=== PATIENT | male | born 1950 | race Caucasian/White ===

== ENCOUNTER 2017-08-03 10:48 | Emergency (ER) | payer MEDICARE, OTHER ==
[2017-08-03] MEDS ORDERED: BUPIVACAINE HCL 0.5 % INJ/PF 30 ML SDV INJ ONE (11:26)
--- NOTE | 2017-08-03 11:27 | RADIOLOGY REPORT (SQ) ---
EXAM DESCRIPTION: HAND LEFT 3 VIEWS COMPLETED DATE/TIME: 08/03/2017 11:19 am REASON FOR STUDY: deformity pinky finger COMPARISON: None. EXAM PARAMETERS: NUMBER OF VIEWS: Three views. TECHNIQUE: AP, lateral and oblique radiographic images acquired of the left hand. LIMITATIONS: None. FINDINGS: Normal bone density. Open dislocation left pinky finger PIP joint. There is radial and palmar dislocation of the middle p halanx with respect to the proximal phalanx. The base of the middle phalanx protrudes through a skin defect. No gross fracture. Remainder of the left hand demonstrates advanced osteoarthritis at the 1st carpometacarpal joint. IMPRESSION: Open dislocation left pinky finger at the PIP joint. TECHNICAL DOCUMENTATION: JOB ID: [id number] [employer]- All Rights Reserved
[2017-08-03] MEDS ORDERED: IBUPROFEN 800 MG TABLET ONE (11:33)
--- NOTE | 2017-08-03 11:45 | ER Document Report ---
ED General - General Chief Complaint: Hand Injury Stated Complaint: HAND PAIN Time Seen by Provider: 08/03/17 11:11 Mode of Arrival: Ambulatory Information source: Patient Notes: 66-year-old male presents with complaints of left hand fifth digit injury. Patient notes that he had gloves on was working with a drill bit when the drill caught onto his glove and started to twist it. Patient presents with open laceration dislocation of finger. Patient states he has sensation but is unable to move the digit TRAVEL OUTSIDE OF THE [place] IN LAST 30 DAYS: No - HPI Onset: Just prior to arrival Onset/Duration: Sudden Quality of pain: Sharp Severity: Moderate Pain Level: 3 Associated symptoms: Other Exacerbated by: Denies Relieved by: Denies Similar symptoms previously: No Recently seen / treated by doctor: No - Related Data Allergies/Adverse Reactions: No Known Allergies Allergy (Unverified 08/03/17 10:52) Home Medications: Current Home Medications Lisinopril [Lisinopril] 1 tab PO DAILY 08/03/17 [History] Simvastatin [Simvastatin] 1 tab PO DAILY 08/03/17 [History] Trazodone HCl 50 mg PO QHS PRN 08/03/17 [History] Past Medical History - Social History Smoking Status: Former Smoker Cigarette use (# per day): No Chew tobacco use (# tins/day): No Smoking Education Provided: No Frequency of alcohol use: Occasional Drug Abuse: Marijuana Family History: Reviewed & Not Pertinent Patient has suicidal ideation: No Patient has homicidal ideation: No Renal/ Medical History: Denies: Hx Peritoneal Dialysis - Immunizations Hx Diphtheria, Pertussis, Tetanus Vaccination: No Review of Systems - Review of Systems Notes: REVIEW OF SYSTEMS: CONSTITUTIONAL : Denies fever, chills, or sweats. Denies recent illness. EENT: Denies eye, ear, throat, or mouth pain or symptoms. Denies nasal or sinus congestion or discharge. Denies throat, tongue, or mouth swelling or difficulty swallowing. CARDIOVASCULAR: Denies chest pain. Denies palpitations or racing or irregular heart beat. Denies ankle edema. RESPIRATORY: Denies cough, cold, or chest congestion. Denies shortness of breath, difficulty breathing, or wheezing. GASTROINTESTINAL: Denies abdominal pain or distention. Denies nausea, vomiting , or diarrhea. Denies blood in vomitus, stools, or per rectum. Denies black, tarry stools. Denies constipation. GENITOURINARY: Denies difficulty urinating, painful urination, burning, frequency, blood in urine, or discharge. MUSCULOSKELETAL: Admits to left hand fifth digit pain SKIN: Denies rash, lesions or sores. HEMATOLOGIC : Denies easy bruising or bleeding. LYMPHATIC: Denies swollen, enlarged glands. NEUROLOGICAL: Denies confusion or altered mental status. Denies passing out or loss of consciousness. Denies dizziness or lightheadedness. Denies headache. Denies weakness or paralysis or loss of use of either side. Denies problems with gait or speech. Denies sensory loss, numbness, or tingling. Denies seizures. PSYCHIATRIC: Denies anxiety or stress. Denies depression, suicidal ideation, or homicidal ideation. ALL OTHER SYSTEMS REVIEWED AND NEGATIVE. Dictation was performed using [employer] recognition software PHYSICAL EXAMINATION: GENERAL: Well-appearing, well-nourished and in no acute distress. HEAD: Atraumatic, normocephalic. EYES: Pupils equal round and reactive to light, extraocular movements intact, sclera anicteric, conjunctiva are normal. ENT: Nares patent, oropharynx clear without exudates. Moist mucous membranes. NECK: Normal range of motion, supple without lymphadenopathy LUNGS: Breath sounds clear to auscultation bilaterally and equal. No wheezes rales or rhonchi. HEART: Regular rate and rhythm without murmurs ABDOMEN: Soft, nontender, nondistended abdomen. No guarding, no rebound. No masses appreciated. Musculoskeletal: Obvious open dislocation of the distal phalanx at the PIP joint the bone is exposed and protruding from the skin Patient has sensation at the distal aspect is unable to move the digit NEUROLOGICAL: Cranial nerves grossly intact. Normal speech, normal gait. Normal sensory, motor exams PSYCH: Normal mood, normal affect. SKIN: 1.2 cm laceration of the left hand on the palmar aspect of the PIP joint Physical Exam - Vital signs Vitals: Temp Pulse Resp BP Pulse Ox 97.9 F 51 L 16 129/57 H 96 08/03/17 10:59 08/03/17 10:59 08/03/17 10:59 08/03/17 10:59 08/03/17 10:59 Course - Re-evaluation Re-evalutation: 08/03/17 11:44 digital nerve block performed with complete relief, I reduced the patient's dislocation with no difficulty Flako mccallum , 08/03/17 12:02 Flako Alonzo orthopedic calls back and states that patient will require emergent transfer to hand specialist given that the bone and tendon are still exposed 08/03/17 12:15 Dr Toi mccallum at [facility] 08/03/17 12:35 Dr Cm accepts patient 08/03/17 15:[address] 4 sutures to approximate the skin, antibiotics tetanus were updated. Patient overall looks well and is awaiting transfer - Vital Signs Vital signs: Temp Pulse Resp BP Pulse Ox 97.9 F 51 L 16 129/57 H 96 08/03/17 10:59 08/03/17 10:59 08/03/17 10:59 08/03/17 10:59 08/03/17 10:59 - Diagnostic Test Radiology reviewed: Image reviewed, Reports reviewed Procedures - Joint Reduction/Fracture Care Left 5th digit Time completed: 13:00 Consent obtained: Yes Conscious sedation: No Pre-procedure NV exam: No Fracture: Open Manipulation comment: reduced with no complication Post-procedure NV exam: Yes Post-reduction x-ray: Joint reduced Reduction attempts: 1 Complications: No - Laceration/Wound Repair Left 5th digit Time completed: 12:29 Wound length (cm): 1.2 Wound's Depth, Shape: Into muscle, Irregular, Contused tissue Laceration pre-procedure: Sterile PPE donned, Betadine prep applied, Sterile drapes applied Anesthetic type: 0.5% Bupivacaine Volume Anesthetic (mLs): 10 Wound explored: No foreign body removed, Contaminated Irrigated w/ Saline (mLs): 6,000 Wound Debrided: Extensive Wound Repaired With: Sutures Suture Size/Type: 6:0 Number of Sutures: 4 Layer Closure?: No Post-procedure wound care: Sterile dressing applied, Splint applied Post-procedure NV exam normal: Yes Complications: No - Additional Procedures digital nerve block Time performed: 12:00 - Using 10 cc of Sensorcaine without epi digital nerve block was performed with no complication full pain control Discharge - Discharge Clinical Impression: Open fracture dislocation of proximal interphalangeal joint Condition: Fair Disposition: [facility], [facility]
[2017-08-03] MEDS ORDERED: LIDOCAINE 1% INJ-PF (10 MG/ML) 30 ML SDV INJ ONE (12:00)
[2017-08-03] MEDS ORDERED: DIPH/PERTUSS(ACELL)/TETANUS VAC/PF 0.5 ML SYR (>=10YO) IM ONE (12:04)
[2017-08-03] MEDS ORDERED: CEFAZOLIN 1 GM/D5W RTU 1 GM/50 ML RTUPB IV ONE (12:04)
--- NOTE | 2017-08-03 13:11 | RADIOLOGY REPORT (SQ) ---
EXAM DESCRIPTION: FINGER LEFT COMPLETED DATE/TIME: 08/03/2017 12:59 pm REASON FOR STUDY: post reduction COMPARISON: None. NUMBER OF VIEWS: Three views. TECHNIQUE: AP, lateral, and oblique images acquired of the left 5th finger LIMITATIONS: None. FINDINGS: MINERALIZATION: Normal. BONES: Question tiny avulsion fragment off the palmar are aspect, proximal phalanx near the PIP joint . This is marked with an arrow on the lateral view. No fracture of the middle phalanx. SOFT TISSUES: PIP joint soft tissue swelling. No foreign body. OTHER: No other significant finding. IMPRESSION: Post closed reduction of the pinky finger dislocation at the PIP joint. Normal alignmen t. Question tiny avulsion fragment off the palmar aspect proximal phalanx near the PIP joint, best shown on lateral view marked with an arrow COMMENT: SITE OF TRAUMA/COMPLAINT MARKED/STAMP COMPLETED: Yes TECHNICAL DOCUMENTATION: JOB ID: [id number] [employer]- All Rights Reserved
[2017-08-03 16:57] VITALS: BP 175/77
== END 2017-08-03 16:57 | disposition short-term general hospital (02) ==
LOC: ER 10:48
PROC: 0PSVXZZ Reposition Left Finger Phalanx, External Approach (ICD-10-PCS; principal; 2017-08-03)
PROC: 0HQGXZZ Repair Left Hand Skin, External Approach (ICD-10-PCS; 2017-08-03)
DX: S62.627B Displaced fracture of middle phalanx of left little finger, initial encounter for open fracture (principal); W31.1XXA Contact with metalworking machines, initial encounter; Z87.891 Personal history of nicotine dependence; Z23 Encounter for immunization
CPT/HCPCS: 99284; 90471; 96365; 73140; 73130; 90715; 26725; 12001; J0690; A9270; J3490

== ENCOUNTER 2018-07-28 14:09 | Observation (INO) | payer MEDICARE, OTHER ==
--- NOTE | 2018-07-28 14:22 | ER Document Report ---
ED Medical Screen (RME) - General Chief Complaint: S/S of Possible Stroke Stated Complaint: STROKE LIKE SYMPTOMS Time Seen by Provider: 07/28/18 14:19 Notes: 67-year-old male patient who suffered a basal ganglia hemorrhage 1 month ago with right-sided weakness. He noticed yesterday that his right lower extremity did not seem to have the strength and coordination that it normally was having. He did not pay much attention to it until this morning when he went to his physical therapy/stroke rehab. It was noted that he could not walk as well or use lower extremity as well as he could on his previous visits. He was sent to the emergency room for further evaluation. I have greeted and performed a rapid initial assessment of this patient. A comprehensive ED assessment and evaluation of the patient, analysis of test results and completion of the medical decision making process will be conducted by additional ED providers. TRAVEL OUTSIDE OF THE [place] IN LAST 30 DAYS: No - Related Data Allergies/Adverse Reactions: No Known Allergies Allergy (Verified 06/27/18 11:40) Past Medical History - Past Medical History Cardiac Medical History: Reports: Hx Hypercholesterolemia, Hx Hypertension Renal/ Medical History: Denies: Hx Peritoneal Dialysis Past Surgical History: Reports: Hx Orthopedic Surgery - right hip replacement - Immunizations Hx Diphtheria, Pertussis, Tetanus Vaccination: No Doctor's Discharge - Discharge Referrals: BROOK CARR [Primary Care Provider] - Follow up as needed
--- NOTE | 2018-07-28 14:56 | RADIOLOGY REPORT (SQ) ---
EXAM DESCRIPTION: CT HEAD WITHOUT COMPLETED DATE/TIME: 07/28/2018 2:37 pm REASON FOR STUDY: New right lower extremity weakness COMPARISON: 06/27/2018 CT brain TECHNIQUE: Axial images acquired through the brain without intravenous contrast. Images reviewed wi th bone, brain and subdural windows. Additional sagittal and coronal reconstructions were generated. Images stored on PACS. All CT scanners at this facility use dose modulation, iterative reconstruction, and/or weight based d osing when appropriate to reduce radiation dose to as low as reasonably achievable (ALARA). [facility]: Dose Right [facility]: CareDose [facility]: Dose Right [facility]: Teradose 4D [facility]: Smart Soluto RADIATION DOSE: CT Rad equipment meets quality standard of care and radiation dose reduction techniq ues were employed. CTDIvol: 53.2 mGy. DLP: 1017 mGy-cm. mGy. LIMITATIONS: None. FINDINGS: VENTRICLES: Normal size and contour. CEREBRUM: The small parenchymal hemorrhage along the left inferior basal ganglia/left medial temporal lobe seen on 06/27/2018 is no longer hyperdense. A hypodense subacute infarct is now evident on axi al image 15, 17 x 11 mm in size. No acute large territory ischemic change, acute intracranial hemorrh age, mass effect, or midline shift. There is mild to moderate spotty small vessel chronic ischemic change in the hemispheric white matter bifrontal and biparietal regions, stable compared to prior study. CEREBELLUM: No masses. No hemorrhage. No alteration of density. No evidence for acute infarction. EXTRAAXIAL SPACES: No fluid collections. No masses. ORBITS AND GLOBE: No intra- or extraconal masses. Normal contour of globe without masses. CALVARIUM: No fracture. PARANASAL SINUSES: No fluid or mucosal thickening. SOFT TISSUES: No mass or hematoma. OTHER: No other significant finding. IMPRESSION: Subacute infarct left basal ganglia/ medial temporal lobe in an area of acute hemorrhage identified 06/27/2018. No acute large territory ischemic change, acute intracranial hemorrhage mass effect or midline shift. EVIDENCE OF ACUTE STROKE: NO. COMMENT: Pertinent findings on the imaging study reported as a CRITICAL RESULT to KALYAN FUCHS MD at14:35 on 07/28/2018. Category of Critical Result: CT code stroke Quality ID # [id number]: Final reports with documentation of one or more dose reduction techniques (e.g., Au tomated exposure control, adjustment of the mA and/or kV according to patient size, use of iterative reconstruction technique) TECHNICAL DOCUMENTATION: JOB ID: [id number] [employer]- All Rights Reserved Reading location - IP/workstation name: [email or web address]
[2018-07-28 15:06] LABS: ABSOLUTE BASOPHILS # (AUTO) 0.1 10^3/uL (0.0-0.2); ABSOLUTE EOSINOPHILS # (AUTO) 0.3 10^3/uL (0.0-0.6); ABSOLUTE LYMPHOCYTES (AUTO) 2.1 10^3/uL (0.5-4.7); ABSOLUTE MONOCYTES (AUTO) 0.6 10^3/uL (0.1-1.4); ABSOLUTE NEUT (AUTO) 3.7 10^3/uL (1.7-8.2); BASOPHILS % (AUTO) 0.9 % (0-2); HEMOGLOBIN 14.9 g/dL (13.5-17.0); MEAN CORPUSCULAR HEMOGLOBIN 31.5 pg (27.0-33.4); MEAN CORPUSCULAR HGB CONC 34.7 g/dL (32.0-36.0); MEAN CORPUSCULAR VOLUME 91 fl (80-97); MONOCYTES % (AUTO) 9.6 % (3-13); PLATELET COUNT 161 10^3/uL (150-450); RED BLOOD COUNT 4.75 10^6/uL (4.35-5.55); RED CELL DISTRIBUTION WIDTH 13.2 % (11.5-14.0); SEGMENTED NEUTROPHILS % (AUTO) 54.5 % (42-78); TOTAL CELLS COUNTED % (AUTO) 100 %; WHITE BLOOD COUNT 6.8 10^3/uL (4.0-10.5)
--- NOTE | 2018-07-28 15:15 | ER Document Report ---
ED Neuro Symptoms/Deficit - General Chief Complaint: S/S of Possible Stroke Stated Complaint: STROKE LIKE SYMPTOMS Time Seen by Provider: 07/28/18 14:19 Mode of Arrival: Stretcher Information source: Patient TRAVEL OUTSIDE OF THE [place] IN LAST 30 DAYS: No - HPI Patient complains to provider of: Paresthesia, Weakness Onset: Yesterday Symptoms are: Worse/persistent Duration: More than 3 hrs Severity: Moderate Was STROKE ALERT Called: Yes Baseline Cognitive: Alert, oriented X 3 Baseline Gait: Uses a cane/walker Pre-existing weakness: Lower extremity, Upper extremity Patient Orientation: Person, Place, Time, Events New weakness: RUE, RLE Altered sensation: RLE Decreased ability to stand/walk: Weak Associated symptoms: None Similar symptoms previously: Yes Recently seen / treated by doctor: Yes Notes: Patient is a 67-year-old male presenting to the emergency room today complaining of worsening right-sided weakness over the past 2 days, he has a 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 exactly 1 month ago today, he was transferred to [facility] where he received care and was discharged, has currently been participating in physical therapy, he states he noticed his weakness starting sometime yesterday however at physical therapy today he was unable to move the right leg and complete the exercises that he has in the past therefore prompting physical therapist to send him to the emergency room for evaluation - Related Data Allergies/Adverse Reactions: No Known Allergies Allergy (Verified 06/27/18 11:40) Past Medical History - General Information source: Patient - Social History Smoking Status: Never Smoker Family History: Reviewed & Not Pertinent - Past Medical History Cardiac Medical History: Reports: Hx Hypercholesterolemia, Hx Hypertension Renal/ Medical History: Denies: Hx Peritoneal Dialysis Past Surgical History: Reports: Hx Orthopedic Surgery - right hip replacement - Immunizations Hx Diphtheria, Pertussis, Tetanus Vaccination: No Review of Systems - Review of Systems Constitutional: No symptoms reported EENT: No symptoms reported Cardiovascular: No symptoms reported Respiratory: No symptoms reported Gastrointestinal: No symptoms reported Genitourinary: No symptoms reported Male Genitourinary: No symptoms reported Musculoskeletal: No symptoms reported Skin: No symptoms reported Hematologic/Lymphatic: No symptoms reported Neurological/Psychological: See HPI -: Yes All other systems reviewed and negative Physical Exam - Vital signs Vitals: Temp Pulse Resp BP Pulse Ox 97.8 F 76 16 142/73 H 94 07/28/18 14:24 07/28/18 14:24 07/28/18 14:24 07/28/18 14:24 07/28/18 14:24 Interpretation: Normal - General General appearance: Appears well, Alert - HEENT Head: Normocephalic, Atraumatic Eyes: Normal Pupils: PERRL - Respiratory Respiratory status: No respiratory distress Chest status: Nontender Breath sounds: Normal Chest palpation: Normal - Cardiovascular Rhythm: Regular Heart sounds: Normal auscultation Murmur: No - Abdominal Inspection: Normal Distension: No distension Bowel sounds: Normal Tenderness: Nontender Organomegaly: No organomegaly - Back Back: Normal, Nontender - Extremities General upper extremity: Normal inspection, Nontender, Normal color, Normal ROM , Normal temperature General lower extremity: Normal inspection, Nontender, Normal color, Normal ROM , Normal temperature, Normal weight bearing. No: Yandel's sign - Neurological Neuro grossly intact: Yes Cognition: Normal Orientation: AAOx4 Sof[place] Coma Scale Eye Opening: Spontaneous [place] Coma Scale Verbal: Oriented Sofya Coma Scale Motor: Obeys Commands Sofya Coma Scale Total: 15 Speech: Normal Motor strength normal: LUE, LLE Additional motor exam normals: Pronator drift, Weakness Sensory: Altered light touch - Psychological Associated symptoms: Normal affect, Normal mood - Skin Skin Temperature: Warm Skin Moisture: Dry Skin Color: Normal Course - Re-evaluation Re-evalutation: 07/28/18 15:19 A call was placed to [facility], spoke with Pal in the transfer center and requested callback from neurology for consult and/or possible transfer of patient 07/28/18 16:[address] Swanson, neurology and [facility], recommends patient get an MRI with no contrast at this point in time and likely transfer back to [facility] depending on the results of this MRI 07/28/18 19:[address] Pal Wang who accepts for observation admission to the IMCU for worsening CVA symptoms - Vital Signs Vital signs: Temp Pulse Resp BP Pulse Ox 97.8 F 76 16 142/73 H 98 07/28/18 14:24 07/28/18 14:24 07/28/18 14:24 07/28/18 14:24 07/28/18 14:45 - Laboratory Result Diagrams: 07/28/18 14:54 07/28/18 14:54 - Diagnostic Test Radiology reviewed: Image reviewed, Reports reviewed ED NIH Stroke Scale - NIH Stroke Scale *: 1. NIH scale should be completed with appropriate accompanying assessment tools. *: 2. The NIH should reflect what the patient is capable of doing and should not be coached by the clinician. 1a. Level of Consciousness: 0=Alert;keenly responsive -: 1=Drowsy -: 2=Obtunded -: 3=Coma/unresponsive or reflex to noxious stimuli. 1a. Responses: 0 1b. Orientation Questions: a. What month is it? -: b. How old are you? -: 0=Answers both questions correctly. -: 1=Answers one question correctly or patient is intubated or has orotracheal trauma. -: 2=Answers neither question correctly. 1b. Responses: 0 1c. Response to commands: a. Open and close eyes? -: b. Circuit [employer] Assembler and release hand? -: Credit is given despite weakness. Demonstration of task is permitted. Substitute command if hands cannot be used. -: 0=Performs both tasks correctly -: 1=Performs one task correctly -: 2=Performs neither task correctly 1c. Responses: 0 2. Gaze: Establish eye contact and instruct patient to "Follow my finger" -: 0=Normal -: 1=Partial gaze palsy. Gaze is abnormal in one or both eyes, but where forced deviation or total gaze paresis is not present. -: 2=Forced deviation or total gaze paresis. 2. Responses: 0 3. Visual Gomez: Sees fingers in all four quadrants. -: 0=No visual loss. -: 1=Partial hemianopsia. -: 2=Complete hemianopsia. -: 3=Bilateral hemianopsia (including Cortical blindness) 3. Responses: 0 4. Facial Movement: Instruct patient to: -: a. Show me your teeth -: b. Raise your eyebrows -: c. Close your eyes -: d. Smile -: 0=Normal symmetrical movement -: 1=Minor paralysis (flattened nasolabial fold, asymmetry on smiling). -: 2=Partial paralysis (total or near total paralysis of lower face). -: 3=Complete paralysis of upper and lower face 4. Responses: 0 5. Motor functions (left arm): Alternate sides and extend each arm with palms down (90 degrees if sitting or 45 degrees for supine). -: 0=No drift;limb holds for full 10 seconds. -: 1=Drift; limb holds but drifts down before full 10 seconds, but does not hit bed. -: 2=Some effort against gravity; limb cannot get to or maintain position. -: 3=No effort against gravity; limb falls. -: 4=No movement. -: UN=Amputation, joint fusion, explain in comments. 5. Responses (left arm): 0 5. Motor Functions (right arm): Alternate sides and extend each arm with palms down (90 degrees if sitting or 45 degrees for supine). -: 0=No drift;limb holds for full 10 seconds. -: 1=Drift; limb holds but drifts down before full 10 seconds, but does not hit bed. -: 2=Some effort against gravity; limb cannot get to or maintain position. -: 3=No effort against gravity; limb falls. -: 4=No movement. -: UN=Amputation, joint fusion, explain in comments. 5. Responses (right arm): 2 6. Motor Functions (left leg): With patient lying supine, alternate sides and extend each leg (30 degrees always while supine). -: 0=No drift, leg holds position for full 5 seconds -: 1=Drift; leg falls before full 5 seconds but does not hit bed. -: 2=Some effort against gravity, leg falls to bed but some effort against gravity. -: 3=No effort against gravity, leg falls to bed immediately. -: 4=No movement. -: UN=Amputation, joint fusion; explain in comments. 6. Responses (left leg): 0 6. Motor Functions (right leg): With patient lying supine, alternate sides and extend each leg (30 degrees always while supine). -: 0=No drift, leg holds position for full 5 seconds -: 1=Drift; leg falls before full 5 seconds but does not hit bed. -: 2=Some effort against gravity, leg falls to bed but some effort against gravity. -: 3=No effort against gravity, leg falls to bed immediately. -: 4=No movement. -: UN=Amputation, joint fusion; explain in comments. 6. Responses (right leg): 3 7. Limb Ataxia: With eyes open instruct patient to: -: a. "Touch your finger to your nose". -: b. "Touch your heel to your steele" -: 0=Absent -: 1=Present in one limb. -: 2=Present in two limbs. -: UN=Amputation or joint fusion; explain in comments. 7. Responses: 0 8. Sensory: Test sensation using pinprick or noxious stimuli. Test as many body parts as possible. -: 0=Normal;no sensory loss -: 1=Mile to moderate sensory loss (patient feels pin prick but is less sharp on affected side). -: 2=Severe or total sensory loss. 8. Responses: 0 9. Best Language: Instruct patient to: -: a. "Describe what you see in this picture." -: b. "Name the items in this picture." -: c. "Read these sentences." -: 0=No aphasia, normal -: 1=Mild to moderate aphasia. -: 2=Severe aphasia -: 3=Mute, global aphasia, no usable speech or auditory comprehension. 9. Responses: 0 10. Articulation, Dysarthia: Instruct patient to: -: "Read these words" or "Repeat these words" -: 0=Normal -: 1=Mild to moderate; patient may slur some words but can be understood without difficulty. -: 2=Severe; patients speech so slurred as to be unintelligible in the absence of dysphasia. -: UN=Intubated or other physical barrier, explain in comments. 10. Responses: 0 11. Extinction or inattention: 0=No abnormality -: 1= Visual, tactile, auditory, spatial, or personal inattention or extinction to bilateral simulation in one or the sensory modalities. -: 2=Profound irene-inattention or irene-inattention to more than one modality; does not recognize own hand. 11. Responses: 0 Total Score: 5 Discharge - Discharge Clinical Impression: CVA (cerebral vascular accident) Qualifiers: CVA mechanism: unspecified Qualified Code(s): I63.9 - Cerebral infarction, unspecified Condition: Stable Disposition: ADMITTED OBSERVATION Admitting Provider: Hospitalist Unit Admitted: IMCU Referrals: BROOK CARR [NO LOCAL MD] - Follow up as needed
[2018-07-28 15:25] LABS: INTERNATIONAL RATION (INR) 0.94; PROTHROMBIN TIME 13.1 SEC (11.4-15.4)
[2018-07-28 15:27] LABS: PARTIAL THROMBOPLASTIN TIME 27.1 SEC (23.5-35.8)
[2018-07-28 15:28] LABS: ALANINE AMINOTRANSFERASE 34 U/L (21-72); ALBUMIN 4.6 g/dL (3.5-5.0); ALKALINE PHOSPHATASE 52 U/L (38-126); ANION GAP 13 (5-19); ASPARTATE AMINO TRANSFERASE 27 U/L (17-59); BILIRUBIN,DIRECT 0.3 mg/dL (0.0-0.4); BILIRUBIN,TOTAL 0.8 mg/dL (0.2-1.3); BLOOD UREA NITROGEN 17 mg/dL (7-20); CALCIUM 10.1 mg/dL (8.4-10.2); CARBON DIOXIDE 25 mmol/L (22-30); CHLORIDE 105 mmol/L (98-107); GLUCOSE 162 mg/dL (75-110); POTASSIUM 4.2 mmol/L (3.6-5.0); SODIUM 143.1 mmol/L (137-145)
[2018-07-28 15:29] LABS: TOTAL PROTEIN 7.3 g/dL (6.3-8.2)
--- NOTE | 2018-07-28 15:49 | RADIOLOGY REPORT (SQ) ---
EXAM DESCRIPTION: CHEST SINGLE VIEW COMPLETED DATE/TIME: 07/28/2018 3:38 pm REASON FOR STUDY: stroke COMPARISON: AP chest 06/27/2018 EXAM PARAMETERS: NUMBER OF VIEWS: One view. TECHNIQUE: Single frontal radiographic view of the chest acquired. RADIATION DOSE: NA LIMITATIONS: None. FINDINGS: LUNGS AND PLEURA: No opacities, masses or pneumothorax. No pleural effusion. MEDIASTINUM AND HILAR STRUCTURES: No masses. Contour normal. HEART AND VASCULAR STRUCTURES: Stable moderate cardiomegaly BONES: No acute findings. HARDWARE: None in the chest. OTHER: No other significant finding. IMPRESSION: No acute findings TECHNICAL DOCUMENTATION: JOB ID: [id number] [employer]- All Rights Reserved Reading location - IP/workstation name: [email or web address]
--- NOTE | 2018-07-28 18:28 | RADIOLOGY REPORT (SQ) ---
EXAM DESCRIPTION: MRI HEAD WITHOUT COMPLETED DATE/TIME: 07/28/2018 5:47 pm REASON FOR STUDY: right side weakness COMPARISON: CT dated 07/28/2018 and 06/27/2018. TECHNIQUE: Multiplanar imaging includes non-contrasted T1, T2, FLAIR, and diffusion with ADC map seq uences. Images stored on PACS. LIMITATIONS: None. FINDINGS: ANATOMY: No anomalies. Normal vascular flow voids. Pituitary fossa normal. CSF SPACES: Atrophy induced prominence of ventricles and CSF spaces. CEREBRUM: High signal intensity lesions scattered throughout the white matter on FLAIR imaging with d istribution suggesting micro-vascular ischemic changes. On gradient images there is a focal area of decreased signal and blooming at the site of previous hemorrhage in the left basal ganglia. No evide nce of acute hemorrhage, mass, or extraaxial fluid collection. POSTERIOR FOSSA: No signal alteration. No hemorrhage. No edema, masses or mass effect. Internal juan david tory canals, cerebello-pontine angles, mastoids normal. DIFFUSION IMAGING: Negative for acute or sub-acute infarction. ORBITS: No masses. Globes normal. PARANASAL SINUSES: No fluid levels. Mucosa normal. OTHER: No other significant finding. IMPRESSION: ATROPHY AND CHRONIC MICRO-VASCULAR ISCHEMIC CHANGES. FOCAL SIGNAL ABNORMALITY IN THE LE FT BASAL GANGLIA ON GRADIENT IMAGING SECONDARY TO PREVIOUS HEMORRHAGE AND RESIDUAL HEMOSIDERIN. NO A CUTE FINDINGS. EVIDENCE OF ACUTE STROKE: NO. TECHNICAL DOCUMENTATION: JOB ID: [id number] [employer]- All Rights Reserved Reading location - IP/workstation name: [email or web address]
[2018-07-28] MEDS ORDERED: MAGNESIUM HYDROXIDE SUSP 30 ML UDCUP PO PRN (19:30)
[2018-07-28] MEDS ORDERED: HYDRALAZINE HCL INJ/PF 20 MG/1 ML SDV IV PRN (19:30)
[2018-07-28] MEDS ORDERED: ACETAMINOPHEN 325 MG TABLET PO PRN ×2 (19:30)
[2018-07-28] MEDS ORDERED: DOCUSATE SODIUM 100 MG CAPSULE PO PRN (19:30)
--- NOTE | 2018-07-28 19:42 | EKG REPORT ---
SEVERITY:- BORDERLINE ECG - SINUS RHYTHM BORDERLINE INFERIOR Q WAVES : Confirmed by: Gabriel Chew MD 28-Jul-2018 19:42:03
[2018-07-28] MEDS ORDERED: TRAZODONE HCL 50 MG TABLET PO SCH (22:00)
[2018-07-28] MEDS: HEPARIN SOD (PORCINE) 5,000 UNIT/ML 1 ML SYRINGE SUBCUT SCH (22:18)
[2018-07-28] MEDS: GABAPENTIN 100 MG CAPSULE PO SCH (22:18)
[2018-07-28 22:50] LABS: CREATINE KINASE MB 0.35 ng/mL (<4.55)
[2018-07-28 22:53] LABS: TROPONIN I < 0.012 ng/mL
[2018-07-29 02:46] LABS: CREATINE KINASE MB 0.35 ng/mL (<4.55)
[2018-07-29 02:47] LABS: TROPONIN I < 0.012 ng/mL
--- NOTE | 2018-07-29 04:55 | PDOC H&P ---
History of Present Illness Admission Date/PCP: 07/28/18 19:47 Patient complains of: Right-sided dyskinesias and muscle cramping History of Present Illness: CÉSAR LOPEZ is a 67 year old male with a past medical history of hemorrhagic CVA 1 month ago presents with complaints of right-sided leg cramping and dysesthesias. He admits diarrhea and mild increase of blood pressure, attributing it to a new medication for depression started 6 days ago. Denies palpitations nausea vomiting or headache, in the emergency room MRI is found to have no new findings, he denies palpitations and EKG is in sinus rhythm. Dr. Swanson, neurologist at [facility] recommends observation with outpatient follow-up unless significant new development. He is referred to the hospitalist for observation. Past Medical History Cardiac Medical History: Reports: Hyperlipidema, Hypertension Past Surgical History Past Surgical History: Reports: Orthopedic Surgery - right hip replacement Social History Information Source: Patient Smoking Status: Never Smoker Frequency of Alcohol Use: Occasional Drugs: None - Advance Directive Resuscitation Status: Full Code Family History Family History: Hypertension Parental Family History Reviewed: Yes Children Family History Reviewed: Yes Sibling(s) Family History Reviewed.: Yes Medication/Allergy Home Medications: Lisinopril [Lisinopril] 20 mg PO DAILY 08/03/17 Simvastatin [Simvastatin] 40 mg PO DAILY 08/03/17 Allopurinol [Zyloprim 300 mg Tablet] 300 mg PO DAILY 07/28/18 Colchicine [Colcrys 0.6 mg Tablet] 1 tab PO DAILY 07/28/18 Escitalopram Oxalate [Lexapro 10 mg Tablet] 10 mg PO QHS 07/28/18 Gabapentin [Neurontin 100 mg Capsule] 300 mg PO TID 07/28/18 Hydrocortisone Acetate [Anucort-Hc] 25 mg RC BID 07/28/18 Isosorbide Dinitrate 30 mg PO BID 07/28/18 Allergies/Adverse Reactions: No Known Allergies Allergy (Verified 06/27/18 11:40) Review of Systems Constitutional: ABSENT: chills, fever(s), headache(s), weight gain, weight loss Eyes: ABSENT: visual disturbances Ears: ABSENT: hearing changes Cardiovascular: ABSENT: chest pain, dyspnea on exertion, edema, orthropnea, palpitations Respiratory: ABSENT: cough, hemoptysis Gastrointestinal: ABSENT: abdominal pain, constipation, diarrhea, hematemesis, hematochezia, nausea, vomiting Genitourinary: ABSENT: dysuria, hematuria Musculoskeletal: ABSENT: joint swelling Integumentary: ABSENT: rash, wounds Neurological: ABSENT: abnormal gait, abnormal speech, confusion, dizziness, focal weakness, syncope Psychiatric: ABSENT: anxiety, depression, homidical ideation, suicidal ideation Endocrine: ABSENT: cold intolerance, heat intolerance, polydipsia, polyuria Hematologic/Lymphatic: ABSENT: easy bleeding, easy bruising Physical Exam Vital Signs: Temp Pulse Resp BP Pulse Ox 97.9 F 54 L 20 126/60 H 94 07/29/18 03:59 07/29/18 04:00 07/29/18 04:00 07/29/18 04:00 07/29/18 04:00 Intake & Output 07/27/18 07/28/18 07/29/18 11:59 11:59 11:59 Output Total 325 Balance -325 General appearance: PRESENT: no acute distress, cooperative. ABSENT: disheveled Head exam: PRESENT: atraumatic, normocephalic Eye exam: PRESENT: conjunctiva pink, EOMI, PERRLA. ABSENT: scleral icterus Ear exam: PRESENT: normal external ear exam Mouth exam: PRESENT: moist, tongue midline Neck exam: ABSENT: carotid bruit, JVD, lymphadenopathy, thyromegaly Respiratory exam: PRESENT: clear to auscultation soha. ABSENT: rales, rhonchi, wheezes Cardiovascular exam: PRESENT: RRR. ABSENT: diastolic murmur, rubs, systolic murmur Pulses: PRESENT: normal dorsalis pedis pul Vascular exam: PRESENT: normal capillary refill GI/Abdominal exam: PRESENT: normal bowel sounds, soft. ABSENT: distended, guarding, mass, organolmegaly, rebound, tenderness Rectal exam: PRESENT: deferred Extremities exam: PRESENT: other - Weak dorsiflexion and plantarflexion of right foot. Severe dysesthesias of pins and needles Musculoskeletal exam: PRESENT: other - Weak dorsiflexion and plantarflexion of right foot. Severe dysesthesias of pins and needles Neurological exam: PRESENT: alert, awake, oriented to person, oriented to place , oriented to time, oriented to situation, CN II-XII grossly intact. ABSENT: motor sensory deficit Psychiatric exam: PRESENT: appropriate affect, normal mood. ABSENT: homicidal ideation, suicidal ideation Skin exam: PRESENT: dry, intact, warm. ABSENT: cyanosis, rash Results Laboratory Results: 07/28/18 07/28/18 07/29/18 20:39 20:39 02:00 Creatine Kinase 28 L 32 L CK-MB (CK-2) 0.35 Troponin I < 0.012 07/29/18 02:00 Creatine Kinase CK-MB (CK-2) 0.35 Troponin I < 0.012 Impressions: Head CT 07/28/18 14:22 IMPRESSION: Subacute infarct left basal ganglia/ medial temporal lobe in an area of acute hemorrhage identified 06/27/2018. No acute large territory ischemic change, acute intracranial hemorrhage mass effect or midline shift. EVIDENCE OF ACUTE STROKE: NO. Chest X-Ray 07/28/18 15:15 IMPRESSION: No acute findings Head MRI 07/28/18 16:16 IMPRESSION: ATROPHY AND CHRONIC MICRO-VASCULAR ISCHEMIC CHANGES. FOCAL SIGNAL ABNORMALITY IN THE LEFT BASAL GANGLIA ON GRADIENT IMAGING SECONDARY TO PREVIOUS HEMORRHAGE AND RESIDUAL HEMOSIDERIN. NO ACUTE FINDINGS. EVIDENCE OF ACUTE STROKE: NO. Assessment & Plan - Diagnosis (1) CVA (cerebral vascular accident) Qualifiers: CVA mechanism: unspecified Qualified Code(s): I63.9 - Cerebral infarction, unspecified Is this a current diagnosis for this admission?: Yes Plan: Hemorrhagic CVA 1 month ago, MRI shows no new changes, neurology suggest new symptoms may be related to vasospasm. Observation with outpatient follow-up to neurology at [facility] with Dr. Swanson. Continue outpatient regiment (2) Dysesthesia Is this a current diagnosis for this admission?: Yes Plan: Trial of Neurontin started, discontinuation of unknown antidepressant. (3) Right sided weakness Is this a current diagnosis for this admission?: Yes Plan: Residual to CVA 1 month ago, no new changes, outpatient physical therapy. - Time Time Spent: 30 to 50 Minutes
[2018-07-29] MEDS: HEPARIN SOD (PORCINE) 5,000 UNIT/ML 1 ML SYRINGE SUBCUT SCH ×2 (05:45→14:20)
[2018-07-29 08:34] LABS: ABSOLUTE BASOPHILS # (AUTO) 0.1 10^3/uL (0.0-0.2); ABSOLUTE EOSINOPHILS # (AUTO) 0.2 10^3/uL (0.0-0.6); ABSOLUTE LYMPHOCYTES (AUTO) 1.7 10^3/uL (0.5-4.7); ABSOLUTE MONOCYTES (AUTO) 0.6 10^3/uL (0.1-1.4); ABSOLUTE NEUT (AUTO) 3.4 10^3/uL (1.7-8.2); HEMOGLOBIN 14.6 g/dL (13.5-17.0); LYMPHOCYTES % (AUTO) 28.5 % (13-45); MEAN CORPUSCULAR HEMOGLOBIN 31.3 pg (27.0-33.4); MEAN CORPUSCULAR HGB CONC 34.6 g/dL (32.0-36.0); MEAN CORPUSCULAR VOLUME 91 fl (80-97); MONOCYTES % (AUTO) 10.3 % (3-13); PLATELET COUNT 149 10^3/uL (150-450); RED BLOOD COUNT 4.65 10^6/uL (4.35-5.55); RED CELL DISTRIBUTION WIDTH 13.3 % (11.5-14.0); SEGMENTED NEUTROPHILS % (AUTO) 56.2 % (42-78); TOTAL CELLS COUNTED % (AUTO) 100 %
[2018-07-29 08:57] LABS: ANION GAP 12 (5-19); BLOOD UREA NITROGEN 15 mg/dL (7-20); CALCIUM 10.1 mg/dL (8.4-10.2); CARBON DIOXIDE 26 mmol/L (22-30); CHLORIDE 106 mmol/L (98-107); CHOLESTEROL 171.16 mg/dL (0-200); GLUCOSE 112 mg/dL (75-110); POTASSIUM 4.3 mmol/L (3.6-5.0); SODIUM 143.5 mmol/L (137-145); TRIGLYCERIDES 261 mg/dL (<150)
[2018-07-29 09:07] LABS: CREATINE KINASE MB 0.31 ng/mL (<4.55)
[2018-07-29 09:08] LABS: DIRECT LDL 105 mg/dL (<100); TROPONIN I < 0.012 ng/mL
[2018-07-29 09:09] LABS: VLDL CHOLESTEROL 52.2 mg/dL (10-31)
--- NOTE | 2018-07-29 09:26 | Physician Advisory Note ---
Physician Advisor ProgressNote .: [facility], I have reviewed the medical record for this patient. Physician Advisor Statement: Please consider documenting, if you agree: 1. "Rt hemiparesis, due to prior CVA, worsened acutely due to likely " [cerebral ischemia/Reversible cerebrovascular vasoconstriction syndrome/ Acute cerebrovascular insufficiency/acute new CVA ... of Left Basal Ganglia?] 2. Medical necessity: Medicare pt, appropriately brought in as Obs, given good potential for safe d/c later today after 1MN. - If attending finds he is not safe for d/c later today after all, please document attg concerns/clinical reasons pt needs 2nd MN in hospital, & may then change to Inpt status. Thanks! CK
[2018-07-29] MEDS ORDERED: SIMVASTATIN 40 MG TABLET PO SCH (10:00)
[2018-07-29] MEDS ORDERED: LISINOPRIL 10 MG TABLET PO SCH (10:00)
[2018-07-29] MEDS ORDERED: (PENDING PHARMACY ID) (Lisinopril [Lisinopril] 1 TAB) PO SCH (10:00)
[2018-07-29] MEDS ORDERED: ASPIRIN 81 MG TABLET, ENT COATED PO SCH (10:00)
[2018-07-29] MEDS: GABAPENTIN 100 MG CAPSULE PO SCH (10:05)
[2018-07-29 14:47] VITALS: BP 125/58
--- NOTE | 2018-07-29 19:14 | PDOC DISCHARGE SUMMARY ---
General - Admit/Disc Date/PCP Admission Date/Primary Care Provider: 07/28/18 19:47 Discharge Date: 07/29/18 - Discharge Diagnosis (1) CVA (cerebral vascular accident) Is this a current diagnosis for this admission?: Yes Summary: 07/29/2018 67-year-old male history of hemorrhagic CVA 1 month ago admitted to with complaints of right sided leg cramping and dysesthesias. CT head was done during this hospital stay does not show any acute changes and able to walk around with the help of physical therapy. Patient is continue to use Neurontin as an outpatient. I have also done of the head which was negative for new findings.. (2) Dysesthesia Is this a current diagnosis for this admission?: Yes Summary: 07/29/2018 patient was started on Neurontin and he said is not helping much he is going to talk to the neurologist on Saturday for further management. (3) Right sided weakness Is this a current diagnosis for this admission?: Yes Summary: 07/29/2018 patient has right-sided weakness secondary to hemorrhagic CVA 1 month ago no new changes. - Additional Information Resuscitation Status: Full Code Discharge Diet: As Tolerated Discharge Activity: Slowly Increase Activity, Other Home Medications: Lisinopril 20 mg PO DAILY 08/03/17 Simvastatin 40 mg PO DAILY 08/03/17 Allopurinol [Zyloprim 300 mg Tablet] 300 mg PO DAILY 07/28/18 Colchicine [Colcrys 0.6 mg Tablet] 1 tab PO DAILY 07/28/18 Escitalopram Oxalate [Lexapro 10 mg Tablet] 10 mg PO QHS 07/28/18 Gabapentin [Neurontin 100 mg Capsule] 300 mg PO TID 07/28/18 Hydrocortisone Acetate [Anucort-Hc] 25 mg RC BID 07/28/18 Isosorbide Dinitrate 30 mg PO BID 07/28/18 History of Present Illness History of Present Illness: CÉSAR LOPEZ is a 67 year old male with history of hemorrhagic CVA 1 month ago came to the ER with complaints of right-sided leg cramping. Emergency room gives a history of diarrhea and mild increased blood pressure attributing to the new medication for depression started 6 days ago. Denies any palpitations, nausea, vomitings, headache in the emergency room. MRI of the brain shows no new findings. Dr May neurologist at [facility] recommended outpatient follow-up unless there is a significant development during the hospital stay. She was admitted for observation. Physical Exam Vital Signs: Temp Pulse Resp BP Pulse Ox 98.1 F 57 L 20 125/58 L 95 07/29/18 14:46 07/29/18 14:46 07/29/18 14:46 07/29/18 14:46 07/29/18 14:46 Intake & Output 07/28/18 07/29/18 07/30/18 06:59 06:59 06:59 Intake Total 946 Output Total 525 500 Balance -525 446 Weight 94 kg General appearance: PRESENT: no acute distress Head exam: PRESENT: atraumatic Eye exam: PRESENT: PERRLA Neck exam: ABSENT: carotid bruit, JVD, lymphadenopathy, thyromegaly Respiratory exam: PRESENT: clear to auscultation soha. ABSENT: rales, rhonchi, wheezes Cardiovascular exam: PRESENT: RRR. ABSENT: diastolic murmur, rubs, systolic murmur Pulses: PRESENT: normal dorsalis pedis pul Neurological exam: PRESENT: alert, awake, oriented to time, oriented to situation, other - Right-sided weakness. Psychiatric exam: PRESENT: appropriate affect, normal mood. ABSENT: homicidal ideation, suicidal ideation Results Laboratory Results: 07/29/18 08:00 07/29/18 08:00 07/29/18 07/29/18 08:00 08:00 WBC 6.0 RBC 4.65 Hgb 14.6 Hct 42.0 MCV 91 MCH 31.3 MCHC 34.6 RDW 13.3 Plt Count 149 L Seg Neutrophils % 56.2 Lymphocytes % 28.5 Monocytes % 10.3 Eosinophils % 4.0 Basophils % 1.0 Absolute Neutrophils 3.4 Absolute Lymphocytes 1.7 Absolute Monocytes 0.6 Absolute Eosinophils 0.2 Absolute Basophils 0.1 Sodium 143.5 Potassium 4.3 Chloride 106 Carbon Dioxide 26 Anion Gap 12 BUN 15 Creatinine 0.92 Est GFR ( Amer) > 60 Est GFR (Non-Af Amer) > 60 Glucose 112 H Calcium 10.1 Triglycerides 261 H Cholesterol 171.16 LDL Cholesterol Direct 105 H VLDL Cholesterol 52.2 H HDL Cholesterol 34 L 07/28/18 07/28/18 07/29/18 20:39 20:39 02:00 Creatine Kinase 28 L 32 L CK-MB (CK-2) 0.35 Troponin I < 0.012 07/29/18 07/29/18 07/29/18 02:00 08:00 08:00 Creatine Kinase 29 L CK-MB (CK-2) 0.35 0.31 Troponin I < 0.012 < 0.012 Impressions: Head CT 07/28/18 14:22 IMPRESSION: Subacute infarct left basal ganglia/ medial temporal lobe in an area of acute hemorrhage identified 06/27/2018. No acute large territory ischemic change, acute intracranial hemorrhage mass effect or midline shift. EVIDENCE OF ACUTE STROKE: NO. Chest X-Ray 07/28/18 15:15 IMPRESSION: No acute findings Head MRI 07/28/18 16:16 IMPRESSION: ATROPHY AND CHRONIC MICRO-VASCULAR ISCHEMIC CHANGES. FOCAL SIGNAL ABNORMALITY IN THE LEFT BASAL GANGLIA ON GRADIENT IMAGING SECONDARY TO PREVIOUS HEMORRHAGE AND RESIDUAL HEMOSIDERIN. NO ACUTE FINDINGS. EVIDENCE OF ACUTE STROKE: NO. Qualifiers - * PATIENT BEING DISCHARGED WITH ANY OF THE FOLLOWING DIAGNOSIS: No VTE patient discharged on overlapping Therapy?: Yes
== END 2018-07-29 15:35 | disposition home or self-care (01) ==
LOC: ER 14:09 → EH 19:47 → 3S 21:15
PROVIDERS: ADMIT Internal Medicine; ATTEND Internal Medicine
DX: I63.9 Cerebral infarction, unspecified (principal); R20.8 Other disturbances of skin sensation; I69.351 Hemiplegia and hemiparesis following cerebral infarction affecting right dominant side; F32.9 Major depressive disorder, single episode, unspecified; I10 Essential (primary) hypertension; E78.5 Hyperlipidemia, unspecified; R25.2 Cramp and spasm; Z79.899 Other long term (current) drug therapy; Z96.641 Presence of right artificial hip joint; Z82.49 Family history of ischemic heart disease and other diseases of the circulatory system
CPT/HCPCS: 93005; 99285; 36415 ×2; 82553 ×2; 82962; 82550 ×2; 83735; 84443; 85025 ×2; 85610; 85730; 80048; 80053; 84484 ×2; 83036; 80061; 70551; 71045; 70450; 93010; 97530; 97116; 97163; 97167; G0378 ×2; J1644 ×2; J3490 ×2; A9270 ×4; G8978; G8979; G8987; G8988

== ENCOUNTER 2019-01-07 21:17 | Observation (INO) | payer MEDICARE, OTHER ==
[2019-01-07] MEDS ORDERED: ONDANSETRON 4 MG TAB.RAPDIS PO ONE (22:58)
--- NOTE | 2019-01-07 23:01 | ER Document Report ---
ED Medical Screen (RME) - General Chief Complaint: Abdominal Pain Stated Complaint: ABDOMINAL PAIN Time Seen by Provider: 01/07/19 22:57 Primary Care Provider: RICKIE GRESHAM MD [Primary Care Provider] - Follow up as needed Mode of Arrival: Medic Information source: Patient Notes: 68-year-old male presented to the ED for complaint of right upper quadrant abdominal pain did start at 7 PM tonight. He states he salad and they get back ribs earlier and then the pain started after that. He states he did have some twinges early in the week but nothing as bad as it was tonight. He states he has had nausea but no vomiting. Patient does have a history of a stroke in June bleed on the right with right-sided weakness. He is also had a history of a hip replacement on the right arthritis degenerative disc disease high blood pressure and cholesterol. He does drink 3 times a week does not smoke. He does live with his . He is alert oriented respirations regular and unlabored speaking in full sentences. Labs and ultrasound have been ordered as well as Zofran. I have greeted and performed a rapid initial assessment of this patient. A comprehensive ED assessment and evaluation of the patient, analysis of test results and completion of medical decision making process will be conducted by an additional ED providers. TRAVEL OUTSIDE OF THE [place] IN LAST 30 DAYS: No - Related Data Allergies/Adverse Reactions: No Known Allergies Allergy (Verified 06/27/18 11:40) Past Medical History - Past Medical History Cardiac Medical History: Reports: Hx Hypercholesterolemia, Hx Hypertension Renal/ Medical History: Denies: Hx Peritoneal Dialysis Past Surgical History: Reports: Hx Orthopedic Surgery - right hip replacement - Immunizations Hx Diphtheria, Pertussis, Tetanus Vaccination: No Physical Exam - Vital signs Vitals: Temp Pulse Resp BP Pulse Ox 99.0 F 68 18 153/69 H 95 01/07/19 21:28 01/07/19 21:28 01/07/19 21:28 01/07/19 21:28 01/07/19 21:28 Course - Vital Signs Vital signs: Temp Pulse Resp BP Pulse Ox 99.0 F 68 18 153/69 H 95 01/07/19 21:28 01/07/19 21:28 01/07/19 21:28 01/07/19 21:28 01/07/19 21:28 Doctor's Discharge - Discharge Referrals: RICKIE GRESHAM MD [Primary Care Provider] - Follow up as needed
--- NOTE | 2019-01-08 00:08 | RADIOLOGY REPORT (SQ) ---
EXAM DESCRIPTION: US ABDOMEN DOPPLER LIMITED COMPLETED DATE/TME: 01/07/2019 22:57 CLINICAL HISTORY: 68 years, Male, right upper quad pain nausea COMPARISON: None. TECHNIQUE: Right upper quadrant ultrasound was obtained. LIMITATIONS: None. FINDINGS: Study limited by patient body habitus. The pancreas is largely obscured by overlying bowel gas artifact. Visualized portions of the abdominal aorta appear normal, specifically with the mid abdominal aorta measuring 1.6 cm in AP diameter. The liver is echogenic, measuring 16.4 cm in length. Antegrade flow is documented within the main portal vein. Gallbladder wall thickness measures 4 mm. However, the gallbladder is collapsed. Gallstones are noted. In addition, sonographic Best's sign was positive. No pericholecystic free fluid is identified. Common bile duct measures 2 mm. Right kidney measures 10.4 x 5.5 x 5.9 cm in size. No hydronephrosis. IMPRESSION: Cholelithiasis with positive sonographic Best's sign. It is uncertain whether the gallbladder wall is thickened or if the gallbladder wall is accentuated secondary to nondistention. Overall, cholecystitis is a possibility. Echogenic liver, suggestive of hepatic siderosis. copyright 2010 [employer]- All Rights Reserved
[2019-01-08] MEDS ORDERED: MORPHINE SULFATE 10 MG/ML INJ IV ONE (02:29)
[2019-01-08] MEDS ORDERED: NORMAL SALINE 1000 ML 1,000 ML IV ONE (02:29)
[2019-01-08 02:30] LABS: ABSOLUTE EOSINOPHILS # (AUTO) 0.1 10^3/uL (0.0-0.6); ABSOLUTE LYMPHOCYTES (AUTO) 1.5 10^3/uL (0.5-4.7); ABSOLUTE MONOCYTES (AUTO) 1.1 10^3/uL (0.1-1.4); ABSOLUTE NEUT (AUTO) 5.8 10^3/uL (1.7-8.2); BASOPHILS % (AUTO) 0.4 % (0-2); EOSINOPHILS % (AUTO) 1.7 % (0-6); HEMATOCRIT 40.5 % (37.9-51.0); HEMOGLOBIN 13.7 g/dL (13.5-17.0); LYMPHOCYTES % (AUTO) 17.4 % (13-45); MEAN CORPUSCULAR HEMOGLOBIN 30.9 pg (27.0-33.4); MEAN CORPUSCULAR HGB CONC 33.8 g/dL (32.0-36.0); MEAN CORPUSCULAR VOLUME 91 fl (80-97); MONOCYTES % (AUTO) 12.5 % (3-13); PLATELET COUNT 176 10^3/uL (150-450); RED BLOOD COUNT 4.44 10^6/uL (4.35-5.55); RED CELL DISTRIBUTION WIDTH 13.4 % (11.5-14.0); TOTAL CELLS COUNTED % (AUTO) 100 %; WHITE BLOOD COUNT 8.6 10^3/uL (4.0-10.5)
--- NOTE | 2019-01-08 02:36 | ER Document Report ---
ED GI/ - General Chief Complaint: Abdominal Pain Stated Complaint: ABDOMINAL PAIN Time Seen by Provider: 01/07/19 22:57 Primary Care Provider: RICKIE GRESHAM MD [Primary Care Provider] - Follow up as needed Mode of Arrival: Medic TRAVEL OUTSIDE OF THE [place] IN LAST 30 DAYS: No - HPI Notes: 01/08/19 02:32 Patient is a 68-year-old male with a history of high cholesterol and hypertension and stroke 6 months ago who presents to the emergency department for right upper quadrant pain. He states that the pain started around 7 PM after eating a salad and ribs. Patient describes the pain as a constant throbbing. Patient has had nausea but no vomiting. Denies fever. Denies diarrhea. Patient states his last bowel movement was yesterday which was normal. 01/08/19 08:04 - Related Data Allergies/Adverse Reactions: No Known Allergies Allergy (Verified 06/27/18 11:40) Past Medical History - General Information source: Patient - Social History Smoking Status: Never Smoker Frequency of alcohol use: Social Drug Abuse: None Lives with: Spouse/Significant other Family History: Hypertension Patient has suicidal ideation: No Patient has homicidal ideation: No - Past Medical History Cardiac Medical History: Reports: Hx Hypercholesterolemia, Hx Hypertension Pulmonary Medical History: Reports: None EENT Medical History: Reports: None Neurological Medical History: Reports: None Endocrine Medical History: Reports: None Renal/ Medical History: Reports: None. Denies: Hx Peritoneal Dialysis Malignancy Medical History: Reports None GI Medical History: Reports: None Musculoskeletal Medical History: Reports Hx Arthritis Skin Medical History: Reports None Psychiatric Medical History: Reports: None Traumatic Medical History: Reports: None Infectious Medical History: Reports: None Surgical Hx: Negative Past Surgical History: Reports: Hx Orthopedic Surgery - right hip replacement - Immunizations Hx Diphtheria, Pertussis, Tetanus Vaccination: No Hx Pneumococcal Vaccination: 06/02/18 Review of Systems - Review of Systems Constitutional: No symptoms reported EENT: No symptoms reported Cardiovascular: No symptoms reported Respiratory: No symptoms reported Gastrointestinal: See HPI Genitourinary: No symptoms reported Male Genitourinary: No symptoms reported Musculoskeletal: No symptoms reported Skin: No symptoms reported Hematologic/Lymphatic: No symptoms reported Neurological/Psychological: No symptoms reported Physical Exam - Vital signs Vitals: Temp Pulse Resp BP Pulse Ox 99.0 F 68 18 153/69 H 95 01/07/19 21:28 01/07/19 21:28 01/07/19 21:28 01/07/19 21:28 01/07/19 21:28 Interpretation: Hypertensive - Notes Notes: GENERAL: Well-appearing, well-nourished and in no acute distress. HEAD: Atraumatic, normocephalic. EYES: Pupils equal round and reactive to light, extraocular movements intact, sclera anicteric, conjunctiva are normal. ENT: TMs normal, nares patent, oropharynx clear without exudates. Moist mucous membranes. NECK: Normal range of motion, supple without lymphadenopathy or JVD. LUNGS: Breath sounds clear to auscultation bilaterally and equal. No wheezes rales or rhonchi. HEART: Regular rate and rhythm without murmurs, rubs or gallops. ABDOMEN: Round, firm, tender to right upper quadrant with + murphys sign, normoactive bowel sounds. No guarding. Midline diastasis recti that is soft and protrudes with movement and tension of abdominal muscles. EXTREMITIES: Normal range of motion, no pitting or edema. No clubbing or cyanosis. NEUROLOGICAL: Normal speech, right sided weakness (hx. stroke), uses cane to ambulate. PSYCH: Normal mood, normal affect. SKIN: Warm, Dry, normal turgor, no rashes or lesions noted. Course - Re-evaluation Re-evalutation: 01/08/19 02:36 On initial value and patient does report having about a 7 out of 10 right upper quadrant pain that is a constant throbbing. Patient states that his nausea has improved since receiving medication in triage. Will order IV fluids and pain medication. Ultrasound did show cholelithiasis with concern for acute cholecystitis. Will wait for lab work and consult with surgery. 01/08/19 03:22 Patient's lab work unremarkable. After dose of morphine patient reports that his pain is not better. Called Dr. Vinson the on-call surgicalist at this time does not believe the patient needs to be admitted. Will give another dose of pain medication and reevaluate. If patient continues to have severe pain will consult with surgicalist again. 0614: After receiving a dose of Dilaudid, patient continues to complain of a 4 out of 5 pain. Patient states that he feels uncomfortable going home as his pain is not controlled. Patient reports that he feels very bloated. Spoke with Dr. Vinson who will come and evaluate patient in the emergency department. 0802: Dr. Vinson at bedside and will admit patient. Orders have been placed into the computer. Patient updated on plan of care and will remain n.p.o. Patient is alert and oriented and in no acute distress. Is resting comfortably. Antibiotics have been initiated by surgical us. - Vital Signs Vital signs: Temp Pulse Resp BP Pulse Ox 98.3 F 65 18 121/70 94 01/08/19 04:59 01/08/19 04:59 01/08/19 04:59 01/08/19 04:59 01/08/19 04:59 - Laboratory Result Diagrams: 01/08/19 02:10 01/08/19 02:10 Laboratory results interpreted by me: 01/08/19 01/08/19 02:10 06:30 Glucose 127 H Ur Leukocyte Esterase TRACE H - Diagnostic Test Radiology reviewed: Image reviewed, Reports reviewed Discharge - Discharge Clinical Impression: Nausea Cholelithiasis Qualifiers: Cholelithiasis location: gallbladder Cholecystitis presence: with cholecystitis Cholecystitis acuity: acute Biliary obstruction: without biliary obstruction Qualified Code(s): K80.00 - Calculus of gallbladder with acute cholecystitis without obstruction Abdominal pain Qualifiers: Abdominal location: right upper quadrant Qualified Code(s): R10.11 - Right upper quadrant pain Condition: Stable Disposition: ADMITTED OBSERVATION Admitting Provider: Surgicalist Unit Admitted: Surgical Floor Referrals: RICKIE GRESHAM MD [Primary Care Provider] - Follow up as needed
[2019-01-08 02:53] LABS: ALANINE AMINOTRANSFERASE 36 U/L (21-72); ALBUMIN 4.4 g/dL (3.5-5.0); ALKALINE PHOSPHATASE 59 U/L (38-126); ANION GAP 10 (5-19); ASPARTATE AMINO TRANSFERASE 18 U/L (17-59); BILIRUBIN,DIRECT 0.2 mg/dL (0.0-0.4); BILIRUBIN,TOTAL 0.4 mg/dL (0.2-1.3); BLOOD UREA NITROGEN 17 mg/dL (7-20); CALCIUM 9.9 mg/dL (8.4-10.2); CARBON DIOXIDE 27 mmol/L (22-30); CHLORIDE 103 mmol/L (98-107); GLUCOSE 127 mg/dL (75-110); LIPASE 59.6 U/L (23-300); POTASSIUM 4.6 mmol/L (3.6-5.0); SODIUM 139.7 mmol/L (137-145)
[2019-01-08] MEDS ORDERED: HYDROMORPHONE HCL INJ/PF 2 MG/ML AMPULE IV ONE (03:21)
[2019-01-08 06:45] LABS: APPEARANCE,URINE CLEAR; BILIRUBIN,URINE NEGATIVE (NEGATIVE); COLOR,URINE YELLOW; GLUCOSE, URINE NEGATIVE (NEGATIVE); KETONES,URINE NEGATIVE (NEGATIVE); LEUKOCYTE ESTERASE,URINE TRACE (NEGATIVE); NITRITE,URINE NEGATIVE (NEGATIVE); PROTEIN,URINE NEGATIVE (NEGATIVE); URIC ACID CRYSTALS,URINE RARE /HPF; URINE SPECIFIC GRAVITY 1.011; UROBILINOGEN,URINE NEGATIVE mg/dL (<2.0)
[2019-01-08] MEDS ORDERED: MORPHINE SULFATE 10 MG/ML INJ IV PRN ×3 (07:48→16:14)
[2019-01-08] MEDS ORDERED: ONDANSETRON HCL INJ/PF 4 MG/2 ML SDV IV PRN ×2 (07:48→16:14)
[2019-01-08] MEDS ORDERED: DEXTROSE 5%-LACTATED RINGERS 1,000 ML IV PRN (07:48)
--- NOTE | 2019-01-08 07:59 | PDOC H&P ---
History of Present Illness Admission Date/PCP: RICKIE GRESHAM MD Patient complains of: Right upper quadrant pain and distention History of Present Illness: CÉSAR LOPEZ is a 68 year old male with a 1 day history of right upper quadrant pain that began after eating. It is sharp and stabbing. It is unrelenting. It is constant. Nothing makes it better. Palpation and movement make it worse. The pain does not radiate. He rates it as 9 out of 10. He denies any nausea, vomiting, fevers, chills, fatigue, malaise, orthostasis, dizziness, blurry vision, headache, chest pain, shortness of breath. 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 Endocrine Medical History: Reports: None Renal/ Medical History: Reports: None Malignancy Medical History: Reports: None GI Medical History: Reports: None Musculoskeltal Medical History: Reports: Arthritis Skin Medical History: Reports: None Psychiatric Medical History: Reports: None Traumatic Medical History: Reports: None Infectious Medical History: Reports: None Past Surgical History Past Surgical History: Reports: Orthopedic Surgery - right hip replacement Social History Lives with: Spouse/Significant other Smoking Status: Never Smoker Frequency of Alcohol Use: Occasional Drugs: None Family History Family History: Hypertension Parental Family History Reviewed: Yes Children Family History Reviewed: Yes Sibling(s) Family History Reviewed.: Yes Medication/Allergy Home Medications: Lisinopril 20 mg PO DAILY 08/03/17 Simvastatin 40 mg PO DAILY 08/03/17 Allopurinol [Zyloprim 300 mg Tablet] 300 mg PO DAILY 07/28/18 Colchicine [Colcrys 0.6 mg Tablet] 1 tab PO DAILY 07/28/18 Escitalopram Oxalate [Lexapro 10 mg Tablet] 10 mg PO QHS 07/28/18 Gabapentin [Neurontin 100 mg Capsule] 300 mg PO TID 07/28/18 Hydrocortisone Acetate [Anucort-Hc] 25 mg RC BID 07/28/18 Isosorbide Dinitrate 30 mg PO BID 07/28/18 Allergies/Adverse Reactions: No Known Allergies Allergy (Verified 06/27/18 11:40) Review of Systems Constitutional: ABSENT: anorexia, chills, fatigue, fever(s) Eyes: ABSENT: visual disturbances Ears: ABSENT: hearing changes Nose, Mouth, and Throat: ABSENT: sore throat Cardiovascular: ABSENT: chest pain Respiratory: ABSENT: cough Gastrointestinal: PRESENT: abdominal pain, bloating. ABSENT: melena, nausea, vomiting Genitourinary: ABSENT: dysuria Musculoskeletal: ABSENT: back pain Integumentary: ABSENT: pruritus, rash Neurological: ABSENT: confusion, convulsions, dizziness Psychiatric: ABSENT: anxiety, depression Endocrine: ABSENT: cold intolerance, heat intolerance Hematologic/Lymphatic: ABSENT: easy bleeding, easy bruising Physical Exam Vital Signs: Temp Pulse Resp BP Pulse Ox 98.3 F 65 18 121/70 94 01/08/19 04:59 01/08/19 04:59 01/08/19 04:59 01/08/19 04:59 01/08/19 04:59 Intake & Output 01/07/19 01/08/19 01/09/19 06:59 06:59 06:59 Intake Total 1000 Balance 1000 Weight 91.9 kg General appearance: PRESENT: mild distress, obese Head exam: PRESENT: atraumatic, normocephalic Eye exam: PRESENT: EOMI, PERRLA. ABSENT: scleral icterus Mouth exam: PRESENT: moist, neck supple Teeth exam: ABSENT: poor dentation Neck exam: ABSENT: meningismus, tenderness, thyromegaly, tracheal deviation Respiratory exam: PRESENT: clear to auscultation soha, unlabored. ABSENT: chest wall tenderness, tachypnea, wheezes Cardiovascular exam: PRESENT: RRR Pulses: PRESENT: normal radial pulses Vascular exam: PRESENT: normal capillary refill. ABSENT: pallor GI/Abdominal exam: PRESENT: distended, Best's sign, tenderness - Right upper quadrant. ABSENT: rebound Rectal exam: PRESENT: deferred Extremities exam: ABSENT: clubbing Musculoskeletal exam: ABSENT: deformity Neurological exam: PRESENT: alert, awake, oriented to person, oriented to place, oriented to time, oriented to situation Psychiatric exam: ABSENT: agitated, anxious, depressed Focused psych exam: ABSENT: delusional Skin exam: ABSENT: cyanosis, erythema, jaundice Results Laboratory Results: 01/08/19 02:10 01/08/19 02:10 01/08/19 01/08/19 01/08/19 02:10 02:10 06:30 WBC 8.6 RBC 4.44 Hgb 13.7 Hct 40.5 MCV 91 MCH 30.9 MCHC 33.8 RDW 13.4 Plt Count 176 Seg Neutrophils % 68.0 Lymphocytes % 17.4 Monocytes % 12.5 Eosinophils % 1.7 Basophils % 0.4 Absolute Neutrophils 5.8 Absolute Lymphocytes 1.5 Absolute Monocytes 1.1 Absolute Eosinophils 0.1 Absolute Basophils 0.0 Sodium 139.7 Potassium 4.6 Chloride 103 Carbon Dioxide 27 Anion Gap 10 BUN 17 Creatinine 0.96 Est GFR ( Amer) > 60 Est GFR (Non-Af Amer) > 60 Glucose 127 H Calcium 9.9 Total Bilirubin 0.4 AST 18 ALT 36 Alkaline Phosphatase 59 Total Protein 7.0 Albumin 4.4 Lipase 59.6 Urine Color YELLOW Urine Appearance CLEAR Urine pH 6.0 Ur Specific [place] 1.011 Urine Protein NEGATIVE Urine Glucose (UA) NEGATIVE Urine Ketones NEGATIVE Urine Blood NEGATIVE Urine Nitrite NEGATIVE Ur Leukocyte Esterase TRACE H Urine WBC (Auto) 5 Urine RBC (Auto) 1 Impressions: Abdomen Ultrasound 01/07/19 22:57 IMPRESSION: Cholelithiasis with positive sonographic Best's sign. It is uncertain whether the gallbladder wall is thickened or if the gallbladder wall is accentuated secondary to nondistention. Overall, cholecystitis is a possibility. Echogenic liver, suggestive of hepatic siderosis. copyright 2011 [employer]- All Rights Reserved Assessment & Plan - Diagnosis (1) Acute cholecystitis Is this a current diagnosis for this admission?: Yes - Plan Summary Plan Summary: This is a 68-year-old male with sharp, stabbing, unrelenting right upper quadrant pain. He has gallbladder wall thickening and gallstones present on ultrasound. He has a Best sign on exam. I believe the patient is experiencing acute cholecystitis. I will admit the patient to the hospital, start him on intravenous antibiotics, and plan for surgical intervention today. This has been discussed with the patient and his . They are in agreement with the treatment plan. Risks/benefits discussed, informed consent obtained, and all questions answered.
[2019-01-08] MEDS ORDERED: ROCURONIUM BROMIDE INJ 50 MG/5 ML VIAL IV ONE (09:50)
[2019-01-08] MEDS ORDERED: SUCCINYLCHOLINE CHLORIDE INJ 200 MG/10 ML VIAL ONE (09:50)
[2019-01-08] MEDS ORDERED: NEOSTIGMINE METHYLSULFATE 10 MG/10 ML VIAL ONE (09:50)
[2019-01-08] MEDS ORDERED: GLYCOPYRROLATE 1 MG/5 ML SYRINGE ONE (09:50)
[2019-01-08] MEDS ORDERED: LIDOCAINE 2% INJ-PF (20 MG/ML) 2 ML AMPUL ONE (09:50)
[2019-01-08] MEDS ORDERED: METOCLOPRAMIDE HCL INJ/PF 10 MG/2 ML SDV ONE (09:50)
[2019-01-08] MEDS ORDERED: KETOROLAC TROMETHAMINE 60 MG/2 ML SDV ONE (09:50)
[2019-01-08] MEDS: FAMOTIDINE INJ/PF 20 MG/2 ML SDV IV SCH ×2 (10:17→22:04)
[2019-01-08] MEDS: PIPERACILLIN SODIUM/TAZOBACTAM 3.375 GM in NORMAL SALINE 100 ML IV SCH ×3 (12:34→23:56)
[2019-01-08] MEDS ORDERED: FENTANYL CITRATE INJ/PF 100 MCG/2 ML AMPUL ONE (13:58)
[2019-01-08] MEDS ORDERED: MIDAZOLAM 2 MG/2 ML INJ ONE (13:58)
[2019-01-08] MEDS ORDERED: DEXAMETHASONE SOD PHOSPHATE INJ 4 MG/1 ML VIAL ONE (13:58)
[2019-01-08] MEDS ORDERED: PROPOFOL INJ 200 MG/20 ML VIAL IV ONE (13:58)
[2019-01-08] MEDS ORDERED: ONDANSETRON HCL INJ/PF 4 MG/2 ML SDV ONE (13:58)
[2019-01-08] MEDS ORDERED: ACETAMINOPHEN 1,000 MG/100 ML RTUPB IV ONE (13:59)
[2019-01-08] MEDS ORDERED: BUPIVACAINE HCL 0.5%-EPI 1:200000 INJ/PF 30 ML VIAL ONE (14:00)
[2019-01-08] MEDS ORDERED: DEXMEDETOMIDINE INJ 80 MCG/20 ML VIAL IV ONE (14:34)
[2019-01-08] MEDS ORDERED: MEPERIDINE HCL/PF INJ 25 MG/1 ML DISP.SYRIN IV PRN (16:11)
[2019-01-08] MEDS ORDERED: PROMETHAZINE HCL INJ 25 MG/1 ML VIAL IV PRN ×2 (16:11)
[2019-01-08] MEDS ORDERED: DIPHENHYDRAMINE HCL 50 MG/ML VIAL IV PRN (16:11)
[2019-01-08] MEDS ORDERED: FENTANYL CITRATE INJ/PF 100 MCG/2 ML AMPUL IV PRN ×3 (16:11)
[2019-01-08] MEDS ORDERED: OXYCODONE-ACETAMINOPHEN 5-325 MG TABLET PO PRN (16:14)
--- NOTE | 2019-01-08 17:44 | OPERATIVE REPORT E ---
Operative Report NAME: CÉSAR LOPEZ : 1950 AGE: 68Y DATE OF SURGERY: 01/08/2019 ROOM: 431 PREOPERATIVE DIAGNOSIS: CHOLELITHIASIS, ACUTE CHOLECYSTITIS. POSTOPERATIVE DIAGNOSIS: CHOLELITHIASIS, ACUTE CHOLECYSTITIS. OPERATION: LAPAROSCOPIC CHOLECYSTECTOMY. SURGEON: ALY ALMAGUER M.D. ANESTHESIA: General. INDICATION: This is a 68-year-old male who complained of severe right upper quadrant pains last night after a fatty meal. He went to the ED, where an ultrasound of the gallbladder showed gallstones with acute cholecystitis. The bile duct may be dilated, but all his enzymes are normal. PROCEDURE: After adequate general anesthesia, the patient was placed in supine position and the abdomen and prepped and draped in the usual sterile fashion. An infraumbilical incision was made. The fascia was identified and divided, and a Jelly trocar inserted through the fascia to the abdominal cavity and CO2 insufflated to a pressure of 15 mmHg. Next, the other trocars were placed, a 12 mm subxiphoid and two 5 mm right upper quadrant. The gallbladder was then identified and noted to be quite tense, and unable to be grasped. Because of this, it was then decompressed with a long needle. The tip of the gallbladder was subsequently grasped and pulled over the liver. The infundibulum also was identified and noted to be somewhat fatty and edematous. The cystic duct was then dissected as well as the cystic artery. Cystic duct not enlarged, and therefore cholangiogram was deferred. There were some stones, however, at the gallbladder close to the cystic duct. The cystic duct was subsequently clipped with Hemoclips and divided between the Hemoclips. Cystic artery also identified and clipped with Hemoclips and divided with use of Harmonic nikolay. The gallbladder was then taken off the liver bed with the use of Harmonic nikolay. There was some bleeding at the liver edge that was controlled with Harmonic. This area was then irrigated and there was still minimal oozing of the liver bed, and therefore Surgicel was placed at this area and a #15 Gary drain was then pulled over one of the right upper quadrant ports. The drain was placed in the area of the liver bed. The drain was then anchored to the skin with 2-0 silk. All the trocars were removed and CO2 allowed to come out of the trocar sites. The infraumbilical fascial defect was then closed with a [id number] suture using 0 Vicryl. Two stay sutures tied together to reinforce the closure. The skin incisions were then closed with running subcuticular 4-0 Vicryl undyed. Steri-Strips placed over the operative sites. Needle, instrument, and sponge count were all correct. Estimated blood loss was no more than 10 mL. DICTATING PHYSICIAN: ALY ALMAGUER M.D. [id number] PHY#: [id number] ID: [id number] JOB#: [id number] ACCT: [id number] cc:ALY ALMAGUER M.D. >
--- NOTE | 2019-01-08 18:11 | PDOC CONSULTATION ---
Consultation Consult Date: 01/08/19 Attending physician:: YEMI VINSON Consult reason:: Medical management History of Present Illness Admission Date/PCP: 01/08/19 08:23 RICKIE GRESHAM MD History of Present Illness: CÉSAR LOPEZ is a 68 year old male patient with past medical history of hy perlipidemia, hypertension, history of hemorrhagic CVA presented with chief complaint of right upper quadrant pain. Patient has been in his usual baseline state of health up until today when he started to have right upper quadrant pain which is nonradiating and it is 5/5 on pain scale. His ultrasound shows gallbladder stones and gallbladder wall thickening. Best sign is also positive. His signs symptoms are compatible with acute cholecystitis. Dr. Vinson admit this patient in consult to hospital service for medical management. Past Medical History Cardiac Medical History: Reports: Hyperlipidema, Hypertension Pulmonary Medical History: Reports: None EENT Medical History: Reports: None Neurological Medical History: Reports: None, Hemorrhagic CVA Endocrine Medical History: Reports: None Renal/ Medical History: Reports: None Malignancy Medical History: Reports: None GI Medical History: Reports: None Musculoskeltal Medical History: Reports: Arthritis Skin Medical History: Reports: None Psychiatric Medical History: Reports: None Traumatic Medical History: Reports: None Infectious Medical History: Reports: None Past Surgical History Past Surgical History: Reports: Orthopedic Surgery - right hip replacement Social History Lives with: Spouse/Significant other Smoking Status: Never Smoker Frequency of Alcohol Use: Occasional Drugs: None - Advance Directive Resuscitation Status: Full Code Family History Family History: Hypertension Parental Family History Reviewed: Yes Children Family History Reviewed: Yes Sibling(s) Family History Reviewed.: Yes Medication/Allergy Home Medications: Allopurinol [Zyloprim 300 mg Tablet] 300 mg PO DAILY 01/08/19 Colchicine [Colcrys 0.6 mg Tablet] 0.6 mg PO DAILY 01/08/19 Escitalopram Oxalate [Lexapro 10 mg Tablet] 10 mg PO DAILY 01/08/19 Isosorbide Dinitrate 30 mg PO BID 01/08/19 Lisinopril [Prinivil] 20 mg PO DAILY 01/08/19 Multivit-Min/Folic/Vit K/Lycop [Men's Multivitamin Tablet] 1 tab PO DAILY 01/08/19 Simvastatin [Zocor 40 mg Tablet] 40 mg PO QPM 01/08/19 Allergies/Adverse Reactions: No Known Allergies Allergy (Verified 06/27/18 11:40) Review of Systems Constitutional: ABSENT: chills, fever(s), headache(s), weight gain, weight loss Eyes: ABSENT: visual disturbances Ears: ABSENT: hearing changes Cardiovascular: ABSENT: chest pain, dyspnea on exertion, edema, orthropnea, palpitations Respiratory: ABSENT: cough, hemoptysis Gastrointestinal: PRESENT: abdominal pain - Right upper quadrant Genitourinary: ABSENT: dysuria, hematuria Musculoskeletal: ABSENT: joint swelling Integumentary: ABSENT: rash, wounds Neurological: ABSENT: abnormal gait, abnormal speech, confusion, dizziness, focal weakness, syncope Psychiatric: ABSENT: anxiety, depression, homidical ideation, suicidal ideation Endocrine: ABSENT: cold intolerance, heat intolerance, polydipsia, polyuria Hematologic/Lymphatic: ABSENT: easy bleeding, easy bruising Physical Exam Vital Signs: Temp Pulse Resp BP Pulse Ox 97.7 F 53 L 15 135/55 H 94 01/08/19 16:56 01/08/19 16:56 01/08/19 16:56 01/08/19 16:56 01/08/19 16:56 Intake & Output 01/07/19 01/08/19 01/09/19 06:59 06:59 06:59 Intake Total 1000 1250 Output Total 1165 Balance 1000 85 Weight 91.9 kg General appearance: PRESENT: no acute distress Head exam: PRESENT: atraumatic Neck exam: ABSENT: carotid bruit, JVD, lymphadenopathy, thyromegaly Respiratory exam: PRESENT: clear to auscultation soha. ABSENT: rales, rhonchi, wheezes Cardiovascular exam: PRESENT: RRR. ABSENT: diastolic murmur, rubs, systolic murmur Neurological exam: PRESENT: alert, awake Results Laboratory Results: 01/08/19 02:10 01/08/19 02:10 01/08/19 01/08/19 01/08/19 02:10 02:10 06:30 WBC 8.6 RBC 4.44 Hgb 13.7 Hct 40.5 MCV 91 MCH 30.9 MCHC 33.8 RDW 13.4 Plt Count 176 Seg Neutrophils % 68.0 Lymphocytes % 17.4 Monocytes % 12.5 Eosinophils % 1.7 Basophils % 0.4 Absolute Neutrophils 5.8 Absolute Lymphocytes 1.5 Absolute Monocytes 1.1 Absolute Eosinophils 0.1 Absolute Basophils 0.0 Sodium 139.7 Potassium 4.6 Chloride 103 Carbon Dioxide 27 Anion Gap 10 BUN 17 Creatinine 0.96 Est GFR ( Amer) > 60 Est GFR (Non-Af Amer) > 60 Glucose 127 H Calcium 9.9 Total Bilirubin 0.4 AST 18 ALT 36 Alkaline Phosphatase 59 Total Protein 7.0 Albumin 4.4 Lipase 59.6 Urine Color YELLOW Urine Appearance CLEAR Urine pH 6.0 Ur Specific [place] 1.011 Urine Protein NEGATIVE Urine Glucose (UA) NEGATIVE Urine Ketones NEGATIVE Urine Blood NEGATIVE Urine Nitrite NEGATIVE Ur Leukocyte Esterase TRACE H Urine WBC (Auto) 5 Urine RBC (Auto) 1 Impressions: Abdomen Ultrasound 01/07/19 22:57 IMPRESSION: Cholelithiasis with positive sonographic Best's sign. It is uncertain whether the gallbladder wall is thickened or if the gallbladder wall is accentuated secondary to nondistention. Overall, cholecystitis is a possibility. Echogenic liver, suggestive of hepatic siderosis. copyright 2011 [employer]- All Rights Reserved Assessment and Plan - Diagnosis (1) Abdominal pain due to acute cholecystiti Is this a current diagnosis for this admission?: Yes Plan: Patient is on antibiotic. Status post cholecystectomy. (2) Hypertension Qualifiers: Hypertension type: essential hypertension Qualified Code(s): I10 - Essential (primary) hypertension Is this a current diagnosis for this admission?: Yes Plan: I will revise and continue his home medication. (3) Hyperlipidemia Qualifiers: Hyperlipidemia type: unspecified Qualified Code(s): E78.5 - Hyperlipidemia, unspecified Is this a current diagnosis for this admission?: Yes Plan: I will continue his home statin. (4) History of hemorrhagic CVA Is this a current diagnosis for this admission?: Yes Plan: Stable
[2019-01-08] MEDS: KETOROLAC TROMETHAMINE INJ/PF 30 MG/1 ML SDV IV SCH ×2 (18:24→23:56)
[2019-01-08] MEDS: NORMAL SALINE 1000 ML 1,000 ML IV PRN ×2 (18:29→23:56)
[2019-01-08] MEDS ORDERED: TAMSULOSIN HCL 0.4 MG CAP.SR.24H PO SCH (22:00)
[2019-01-08] MEDS: METOPROLOL TARTRATE 50 MG TABLET PO SCH (22:15)
[2019-01-09] MEDS ORDERED: NORMAL SALINE 1000 ML 1,000 ML IV ONE (00:15)
[2019-01-09] MEDS ORDERED: NALOXONE HCL INJ/PF 0.4 MG/1 ML SDV IV ONE (00:15)
[2019-01-09] MEDS: KETOROLAC TROMETHAMINE INJ/PF 30 MG/1 ML SDV IV SCH (05:54)
[2019-01-09] MEDS: PIPERACILLIN SODIUM/TAZOBACTAM 3.375 GM in NORMAL SALINE 100 ML IV SCH (05:55)
[2019-01-09 07:35] LABS: ABSOLUTE LYMPHOCYTES (AUTO) 0.6 10^3/uL (0.5-4.7); ABSOLUTE MONOCYTES (AUTO) 0.5 10^3/uL (0.1-1.4); ABSOLUTE NEUT (AUTO) 6.4 10^3/uL (1.7-8.2); BASOPHILS % (AUTO) 0.1 % (0-2); HEMATOCRIT 35.8 % (37.9-51.0); HEMOGLOBIN 12.3 g/dL (13.5-17.0); LYMPHOCYTES % (AUTO) 7.9 % (13-45); MEAN CORPUSCULAR HEMOGLOBIN 31.2 pg (27.0-33.4); MEAN CORPUSCULAR HGB CONC 34.4 g/dL (32.0-36.0); MEAN CORPUSCULAR VOLUME 91 fl (80-97); MONOCYTES % (AUTO) 7.1 % (3-13); PLATELET COUNT 143 10^3/uL (150-450); RED BLOOD COUNT 3.94 10^6/uL (4.35-5.55); RED CELL DISTRIBUTION WIDTH 13.5 % (11.5-14.0); SEGMENTED NEUTROPHILS % (AUTO) 84.9 % (42-78); TOTAL CELLS COUNTED % (AUTO) 100 %; WHITE BLOOD COUNT 7.6 10^3/uL (4.0-10.5)
[2019-01-09 07:49] LABS: ALANINE AMINOTRANSFERASE 32 U/L (21-72); ALBUMIN 3.2 g/dL (3.5-5.0); ALKALINE PHOSPHATASE 43 U/L (38-126); ANION GAP 8 (5-19); ASPARTATE AMINO TRANSFERASE 19 U/L (17-59); BILIRUBIN,DIRECT 0.2 mg/dL (0.0-0.4); BILIRUBIN,TOTAL 0.7 mg/dL (0.2-1.3); BLOOD UREA NITROGEN 14 mg/dL (7-20); CARBON DIOXIDE 23 mmol/L (22-30); CHLORIDE 107 mmol/L (98-107); GLUCOSE 141 mg/dL (75-110); POTASSIUM 4.6 mmol/L (3.6-5.0); SODIUM 138.3 mmol/L (137-145); TOTAL PROTEIN 5.5 g/dL (6.3-8.2)
[2019-01-09] MEDS: FAMOTIDINE INJ/PF 20 MG/2 ML SDV IV SCH (09:38)
[2019-01-09] MEDS: METOPROLOL TARTRATE 50 MG TABLET PO SCH (09:41)
[2019-01-09] MEDS ORDERED: FOLIC PO SCH (10:00)
[2019-01-09] MEDS ORDERED: MULTIVIT MIN PO SCH (10:00)
[2019-01-09] MEDS ORDERED: LYCOP PO SCH (10:00)
[2019-01-09] MEDS ORDERED: (PENDING PHARMACY ID) (Lisinopril [Prinivil] 20 MG) PO SCH (10:00)
[2019-01-09] MEDS ORDERED: [UNRECOGNIZED DRUG - OTHER] PO SCH (10:00)
[2019-01-09] MEDS ORDERED: COLCHICINE 0.6 MG TABLET PO SCH (10:00)
[2019-01-09] MEDS ORDERED: ALLOPURINOL 300 MG TABLET PO SCH (10:00)
[2019-01-09] MEDS ORDERED: LISINOPRIL 10 MG TABLET PO SCH (10:00)
[2019-01-09] MEDS ORDERED: VIT K PO SCH (10:00)
[2019-01-09] MEDS ORDERED: (PENDING PHARMACY ID) (Isosorbide Dinitrate [Isosorbide Dinitrate] 30 MG) PO SCH (10:00)
[2019-01-09] MEDS ORDERED: ISOSORBIDE DINITRATE 10 MG TABLET PO SCH (10:00)
[2019-01-09] MEDS ORDERED: ESCITALOPRAM OXALATE 10 MG TABLET PO SCH (10:00)
[2019-01-09 13:25] VITALS: BP 134/54
--- NOTE | 2019-01-09 13:59 | DISCHARGE SUMMARY E ---
Discharge Summary NAME: CÉSAR LOPEZ : 1950 AGE: 68Y ADMITTED: 01/08/2019 DISCHARGED: 01/09/2019 FINAL DIAGNOSIS:Cholelitiasis Acute Cholecystitis PROCEDURE DONE: Laparoscopic cholecystectomy, 01/08/2019. SURGEON: Markell Almaguer M.D. HOSPITAL COURSE: This is a 68-year-old male with sudden complaints of pain in the right upper quadrant with nausea. He had an ultrasound, which showed gallstones. All his enzymes were normal. He was then taken to the OR for laparoscopic cholecystectomy. He was noted to have distended gallbladder with thickened wall, compatible with acute cholecystitis together with cholelithiasis. A Kaminski catheter was inserted in the OR and drained almost 1 L. Since patient unable to void the catheter was left in place and discontinued 6 a.m. on 01/09/2019. Patient started on Flomax. Patient able to void better. He was able to tolerate regular diet and feeling a lot better. The drain was removed on 01/09/2019 since it has not been draining that much. The patient was then discharged improved on 01/09/2019 with the above final diagnosis. Patient also given a prescription for Flomax 0.4 mg p.o. daily. Patient advised to see his primary physician next week and follow up in the surgical clinic in 2 weeks. DICTATING PHYSICIAN: MARKELL ALMAGUER M.D. [id number] PHY#: [id number] ID: [id number] JOB#: [id number] ACCT: [id number] cc:MARKELL ALMAGUER M.D. > MTDD
[2019-01-09] MEDS ORDERED: SIMVASTATIN 40 MG TABLET PO SCH (18:00)
== END 2019-01-09 13:56 | disposition home or self-care (01) ==
LOC: ER 21:17 → EH 01-08 08:23 → 4S 01-08 17:01
PROVIDERS: ADMIT Surgery; ATTEND Surgery
PROC: 0FT44ZZ Resection of Gallbladder, Percutaneous Endoscopic Approach (ICD-10-PCS; principal; 2019-01-08 14:30)
DX: K80.10 Calculus of gallbladder with chronic cholecystitis without obstruction (principal); I10 Essential (primary) hypertension; E78.5 Hyperlipidemia, unspecified; I69.151 Hemiplegia and hemiparesis following nontraumatic intracerebral hemorrhage affecting right dominant side; M19.90 Unspecified osteoarthritis, unspecified site; Z96.641 Presence of right artificial hip joint
CPT/HCPCS: 96376; 99285; 96361; 96374; 96375; 36415 ×2; 83690; 85025 ×2; 80053 ×2; 81001; 88304 ×2; 76705; 93976; 47562; G0378 ×3; A9270 ×6; J2250; J3490 ×6; J1100; J1885 ×3; J3010; J2765; J2270; J2310; J2710; J1170; J0330; J2405; J7121; J7050 ×2; J7030 ×2; J2704; S0028 ×2; J2543 ×2; J0131; 790; S0119

== ENCOUNTER → 2019-02-27 | Outpatient (CLI) | payer MEDICARE, OTHER | LOC: OD 12:06 | PROVIDERS: ATTEND Ophthalmology | DX: H47.392 Other disorders of optic disc, left eye (principal) | CPT/HCPCS: 36415; 85652; 86140 ==

== ENCOUNTER → 2019-04-09 | Outpatient (CLI) | payer MEDICARE, OTHER ==
[2019-04-09 11:38] LABS: ABSOLUTE LYMPHOCYTES (AUTO) 1.7 10^3/uL (0.5-4.7); ABSOLUTE MONOCYTES (AUTO) 1.1 10^3/uL (0.1-1.4); ABSOLUTE NEUT (AUTO) 8.2 10^3/uL (1.7-8.2); BASOPHILS % (AUTO) 0.3 % (0-2); EOSINOPHILS % (AUTO) 0.4 % (0-6); HEMATOCRIT 40.2 % (37.9-51.0); HEMOGLOBIN 13.6 g/dL (13.5-17.0); LYMPHOCYTES % (AUTO) 15.7 % (13-45); MEAN CORPUSCULAR HEMOGLOBIN 30.4 pg (27.0-33.4); MEAN CORPUSCULAR HGB CONC 33.9 g/dL (32.0-36.0); MEAN CORPUSCULAR VOLUME 90 fl (80-97); MONOCYTES % (AUTO) 10.2 % (3-13); PLATELET COUNT 178 10^3/uL (150-450); RED BLOOD COUNT 4.48 10^6/uL (4.35-5.55); RED CELL DISTRIBUTION WIDTH 12.7 % (11.5-14.0); SEGMENTED NEUTROPHILS % (AUTO) 73.4 % (42-78); TOTAL CELLS COUNTED % (AUTO) 100 %; WHITE BLOOD COUNT 11.1 10^3/uL (4.0-10.5)
== END ==
LOC: OD 11:05
PROVIDERS: ATTEND Anesthesiology Pain Medicine
DX: R50.9 Fever, unspecified (principal)
CPT/HCPCS: 36415; 85025

== ENCOUNTER → 2019-04-09 | Outpatient (CLI) | payer MEDICARE, OTHER ==
--- NOTE | 2019-04-09 14:27 | RADIOLOGY REPORT (SQ) ---
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 Additional thin section images through the orbits and sella including axial thin section fat-sat T2 i mages, axial and coronal pre and postcontrast T1 weighted images. Images stored on PACS. CONTRAST TYPE AND DOSE: 15 mL Dotarem. RENAL FUNCTION: Not indicated. ACR Type II contrast agent associated with few, if any, unconfounded cases of NSF LIMITATIONS: None. FINDINGS: PITUITARY FOSSA: No anomalies. Normal vascular flow voids. Pituitary fossa normal. Normal suprasellar cistern. Normal optic chiasm CSF SPACES: Normal in size and contour. No hemorrhage. CEREBRUM: No MR evidence of acute large territory ischemic change, acute intracranial hemorrhage, mas s effect, or midline shift. There is mild to moderate bifrontal and biparietal chronic small vessel ischemic change with increased signal on FLAIR/ T2 images in the hemispheric white matter. POSTERIOR FOSSA: No signal alteration. No hemorrhage. No edema, masses, or mass effect. Internal juan david tory canals, cerebellopontine angles, mastoids normal. No enhancing lesions. No abnormal enhancement post contrast. DIFFUSION IMAGING: Negative for acute or subacute infarction. ORBITS: No masses. Globes normal. No proptosis. Optic nerves are symmetric. No abnormal intrinsic optic nerve signal or dilatation of the optic nerve sheaths. No intraconal masses. Extraocular musc les are unremarkable. Normal lacrimal apparatus bilaterally. Superior ophthalmic veins enhance norm ally and are symmetric in size PARANASAL SINUSES: No fluid levels. Mucosa normal. OTHER: No other significant finding. IMPRESSION: No focal abnormalities along the right or left optic nerve, optic canals, optic chiasm o r suprasellar cistern. Grossly normal pituitary gland. Mild to moderate bifrontal and biparietal chronic small vessel ischemic change in the hemispheric whi te matter EVIDENCE OF ACUTE STROKE: NO. TECHNICAL DOCUMENTATION: JOB ID: [id number] [employer]- All Rights Reserved Reading location - IP/workstation name: [email or web address]
== END ==
LOC: RAD 11:52
PROVIDERS: ATTEND Ophthalmology
DX: H47.392 Other disorders of optic disc, left eye (principal)
CPT/HCPCS: 82565; 70553; A9576

== ENCOUNTER → 2019-04-10 | Outpatient (CLI) | payer MEDICARE, OTHER ==
[2019-04-10 08:39] LABS: ABSOLUTE EOSINOPHILS # (AUTO) 0.2 10^3/uL (0.0-0.6); ABSOLUTE LYMPHOCYTES (AUTO) 1.8 10^3/uL (0.5-4.7); ABSOLUTE MONOCYTES (AUTO) 0.8 10^3/uL (0.1-1.4); ABSOLUTE NEUT (AUTO) 5.3 10^3/uL (1.7-8.2); BASOPHILS % (AUTO) 0.5 % (0-2); EOSINOPHILS % (AUTO) 2.3 % (0-6); HEMATOCRIT 37.3 % (37.9-51.0); HEMOGLOBIN 12.9 g/dL (13.5-17.0); LYMPHOCYTES % (AUTO) 21.9 % (13-45); MEAN CORPUSCULAR HEMOGLOBIN 30.8 pg (27.0-33.4); MEAN CORPUSCULAR HGB CONC 34.5 g/dL (32.0-36.0); MEAN CORPUSCULAR VOLUME 89 fl (80-97); MONOCYTES % (AUTO) 10.3 % (3-13); PLATELET COUNT 178 10^3/uL (150-450); RED BLOOD COUNT 4.19 10^6/uL (4.35-5.55); RED CELL DISTRIBUTION WIDTH 12.6 % (11.5-14.0); TOTAL CELLS COUNTED % (AUTO) 100 %; WHITE BLOOD COUNT 8.1 10^3/uL (4.0-10.5)
== END ==
LOC: OD 08:12
PROVIDERS: ATTEND Physician Assistant
DX: R50.9 Fever, unspecified (principal)
CPT/HCPCS: 36415; 85025

== ENCOUNTER 2019-09-22 06:34 | Day surgery (SDC) | payer OTHER, MEDICARE ==
[~2019-09-22 06:34] MED LIST: BUPIVACAINE HCL 0.75% INJ/PF (7.5 MG/1 ML) 10 ML SDV OS PRN; DORZOLAMIDE HCL 2%/TIMOLOL MALEAT 0.5% OPH SOLN 10 ML OS PRN; KETOROLAC TROMETHAMINE 0.45% 4 DROP/0.4 ML DROPERETTE OS PRN; LIDOCAINE 4% INJ/PF (40 MG/ML) 5 ML AMPUL OS PRN
[2019-09-22] MEDS: TETRACAINE HCL 0.5% OPH SOLN 4 ML OS PRN ×3 (07:00→07:51)
[2019-09-22] MEDS: TROPICAMIDE 1% OPH SOLN 15 ML OS PRN ×3 (07:01→07:30)
[2019-09-22] MEDS: BESIFLOXACIN HCL 0.6% OPH SUSP 5 ML BOTTLE OS PRN ×3 (07:01→08:18)
[2019-09-22] MEDS: CYCLOPENTOLATE 0.2%/PHENYLEPHRINE 1% OPH SOLN 2 ML OS PRN ×3 (07:01→07:30)
[2019-09-22] MEDS ORDERED: EPINEPHRINE INJ/PF 1 MG/1 ML AMPULE ONE (07:17)
[2019-09-22] MEDS ORDERED: LIDOCAINE 1% INJ-PF (10 MG/ML) 30 ML SDV ONE (07:17)
[2019-09-22] MEDS ORDERED: CHONDR SU A NA/HYALUR INTRAOC KIT (SURGICARE) ONE (07:17)
[2019-09-22] MEDS ORDERED: MIDAZOLAM 2 MG/2 ML INJ ONE (07:30)
[2019-09-22] MEDS ORDERED: LIDOCAINE 1%/PHENYLEPHRINE 1.5% 1 ML VIAL ONE (08:32)
--- NOTE | 2019-09-22 09:03 | Operative Report ---
Operative Report-[facility] Operative Report: DATE OF SURGERY: 09/22/2019 PREOPERATIVE DIAGNOSIS: CATARACT, LEFT EYE. POSTOPERATIVE DIAGNOSIS: CATARACT, LEFT EYE. PROCEDURE PERFORMED: PHACOEMULSIFICATION WITH POSTERIOR CHAMBER INTRAOCULAR LENS, LEFT EYE. Intraocular Lens Model : ZCBOO 20.5 Total Phaco Time: 7.15 CDE SURGEON: AUGIE MUHAMMAD MD ANESTHESIA: TOPICAL WITH MAC. INDICATIONS FOR SURGERY: Difficultly driving at night PROCEDURE: The patient was brought to the Operating Room and placed on the operative table. Following tetracaine drops, topical anesthesia was administered. This consisted of instrument wipe pledgets soaked in a solution of 4% Xylocaine mixed with 0.75% Marcaine in a 1:2 ratio. A 2 x 1 cm pledget was placed in the superior fornix. A 1 x 1 cm pledget was placed in the inferior fornix. The eye was patched shut for 5 minutes. The patch was removed. The eye was sterilely prepped and draped in the usual manner. Lid speculum was placed in the eye. The pledgets were removed. 4-0 black silk sutures were placed around the superior and the inferior rectus muscles to be used as traction. A conjunctival peritomy was made at the 10 o'clock position. Hemostasis was obtained with bipolar cautery. A posterior limbal groove was created using a crescent knife and dissected anteriorly towards the cornea. A sharp point blade was used to create a paracentesis site at the 2 o'clock position. 0.2 cc non preserved Lidocaine was injected into the anterior chamber. A 2.4 mm keratome was used to enter the anterior chamber through the groove. Viscoelastic was injected into the anterior chamber. An anterior capsulotomy was performed using Utrata forceps in a capsulorrhexis fashion. Hydrodissection and hydrodelineation were performed. Phacoemulsification was performed in [id number] technique. Following this, the I/A unit was used to remove residual cortex. Viscoelastic was injected into the capsular bag. The Intraocular lens was placed in the capsular bag. The I/A unit was used to remove residual viscoelastic. The wound was seen to be watertight under high and low pressure, and no sutures were placed. The intraocular lens was well centered. The pressure was adjusted in the eye to normal pressure. The 4-0 black silk sutures and lid speculum were removed. The eye was shielded after Besivance and Cosopt drops were placed. The patient tolerated the procedure well and was sent to the Recovery Room in good condition.
== END 2019-09-22 09:04 | disposition home or self-care (01) ==
LOC: SC 06:34
PROVIDERS: ATTEND Ophthalmology
DX: H25.813 Combined forms of age-related cataract, bilateral (principal); I10 Essential (primary) hypertension; E78.00 Pure hypercholesterolemia, unspecified; Z87.891 Personal history of nicotine dependence; H47.013 Ischemic optic neuropathy, bilateral; H47.291 Other optic atrophy, right eye; H57.03 Miosis; Z79.899 Other long term (current) drug therapy; Z79.84 Long term (current) use of oral hypoglycemic drugs
CPT/HCPCS: 66984; 82962; V2632; J2250; J3490 ×5; J0171; J2370; 142

== ENCOUNTER 2019-10-13 07:11 | Day surgery (SDC) | payer MEDICARE, OTHER ==
[~2019-10-13 07:11] MED LIST changes: +BUPIVACAINE HCL 0.75% INJ/PF (7.5 MG/1 ML) 10 ML SDV OD PRN; -BUPIVACAINE HCL 0.75% INJ/PF (7.5 MG/1 ML) 10 ML SDV OS PRN; -DORZOLAMIDE HCL 2%/TIMOLOL MALEAT 0.5% OPH SOLN 10 ML OS PRN; +KETOROLAC TROMETHAMINE 0.45% 4 DROP/0.4 ML DROPERETTE OD PRN; -KETOROLAC TROMETHAMINE 0.45% 4 DROP/0.4 ML DROPERETTE OS PRN; +LIDOCAINE 4% INJ/PF (40 MG/ML) 5 ML AMPUL OD PRN; -LIDOCAINE 4% INJ/PF (40 MG/ML) 5 ML AMPUL OS PRN
[2019-10-13] MEDS: CYCLOPENTOLATE 0.2%/PHENYLEPHRINE 1% OPH SOLN 2 ML OD PRN ×3 (07:50→08:10)
[2019-10-13] MEDS: TROPICAMIDE 1% OPH SOLN 15 ML OD PRN ×3 (07:50→08:10)
[2019-10-13] MEDS: TETRACAINE HCL 0.5% OPH SOLN 4 ML OD PRN ×3 (07:50→08:22)
[2019-10-13] MEDS ORDERED: LIDOCAINE 1%/PHENYLEPHRINE 1.5% 1 ML VIAL ONE (07:50)
[2019-10-13] MEDS ORDERED: EPINEPHRINE INJ/PF 1 MG/1 ML AMPULE ONE (07:50)
[2019-10-13] MEDS: BESIFLOXACIN HCL 0.6% OPH SUSP 5 ML BOTTLE OD PRN ×5 (07:50→08:53)
[2019-10-13] MEDS ORDERED: CHONDR SU A NA/HYALUR INTRAOC KIT (SURGICARE) ONE (07:51)
[2019-10-13] MEDS ORDERED: MIDAZOLAM 2 MG/2 ML INJ ONE (08:24)
[2019-10-13] MEDS ORDERED: FENTANYL CITRATE INJ/PF 100 MCG/2 ML AMPUL ONE (08:24)
[2019-10-13] MEDS: DORZOLAMIDE HCL 2%/TIMOLOL MALEAT 0.5% OPH SOLN 10 ML OD PRN ×3 (08:50→08:53)
--- NOTE | 2019-10-13 11:38 | Operative Report ---
Operative Report-[facility] Operative Report: DATE OF SURGERY: 10/13/2019 PREOPERATIVE DIAGNOSIS: CATARACT, RIGHT EYE. POSTOPERATIVE DIAGNOSIS: CATARACT, RIGHT EYE. PROCEDURE PERFORMED: PHACOEMULSIFICATION WITH POSTERIOR CHAMBER INTRAOCULAR LENS, RIGHT EYE. Intraocular Lens Model : ZCBOO 20.5 Total Phaco Time: 3.93 CDE SURGEON: AUGIE MUHAMMAD MD ANESTHESIA: TOPICAL WITH MAC. INDICATIONS FOR SURGERY: Difficulty reading small print and words on TV. PROCEDURE: The patient was brought to the Operating Room and placed on the operative table. Following tetracaine drops, topical anesthesia was administered. This consisted of instrument wipe pledgets soaked in a solution of 4% Xylocaine mixed with 0.75% Marcaine in a 1:2 ratio. A 2 x 1 cm pledget was placed in the superior fornix. A 1 x 1 cm pledget was placed in the inferior fornix. The eye was patched shut for 5 minutes. The patch was removed. The eye was sterilely prepped and draped in the usual manner. Lid speculum was placed in the eye. The pledgets were removed. 4-0 black silk sutures were placed around the superior and the inferior rectus muscles to be used as traction. A conjunctival peritomy was made at the 10 o'clock position. Hemostasis was obtained with bipolar cautery. A posterior limbal groove was created using a crescent knife and dissected anteriorly towards the cornea. A sharp point blade was used to create a paracentesis site at the 2 o'clock position. 0.2 cc non preserved Lidocaine was injected into the anterior chamber. A 2.4 mm keratome was used to enter the anterior chamber through the groove. Viscoelastic was injected into the anterior chamber. An anterior capsulotomy was performed using Utrata forceps in a capsulorrhexis fashion. Hydrodissection and hydrodelineation were performed. Phacoemulsification was performed in [id number] technique. Following this, the I/A unit was used to remove residual cortex. Viscoelastic was injected into the capsular bag. The Intraocular lens was placed in the capsular bag. The I/A unit was used to remove residual viscoelastic. The wound was seen to be watertight under high and low pressure, and no sutures were placed. The intraocular lens was well centered. The pressure was adjusted in the eye to normal pressure. The 4-0 black silk sutures and lid speculum were removed. The eye was shielded after Besivance. prednisolone, and Cosopt drops were placed. The patient tolerated the procedure well and was sent to the Recovery Room in good condition.
== END 2019-10-13 09:34 | disposition home or self-care (01) ==
LOC: SC 07:11
PROVIDERS: ATTEND Ophthalmology
DX: H25.811 Combined forms of age-related cataract, right eye (principal); Z96.1 Presence of intraocular lens; H57.03 Miosis; I10 Essential (primary) hypertension; Z79.899 Other long term (current) drug therapy
CPT/HCPCS: 82962; 00142; 66984; V2632; J2250; J3490 ×4; J0171; J3010; J2370; 142

== ENCOUNTER → 2020-04-20 | Outpatient (CLI) | payer MEDICARE, OTHER ==
[2020-04-20 15:03] LABS: ABSOLUTE BASOPHILS # (AUTO) 0.1 10^3/uL (0.0-0.2); ABSOLUTE EOSINOPHILS # (AUTO) 0.3 10^3/uL (0.0-0.6); ABSOLUTE LYMPHOCYTES (AUTO) 2.2 10^3/uL (0.5-4.7); ABSOLUTE MONOCYTES (AUTO) 0.8 10^3/uL (0.1-1.4); BASOPHILS % (AUTO) 1.1 % (0-2); EOSINOPHILS % (AUTO) 4.8 % (0-6); HEMATOCRIT 39.9 % (37.9-51.0); HEMOGLOBIN 13.8 g/dL (13.5-17.0); MEAN CORPUSCULAR HEMOGLOBIN 30.8 pg (27.0-33.4); MEAN CORPUSCULAR HGB CONC 34.6 g/dL (32.0-36.0); MEAN CORPUSCULAR VOLUME 89 fl (80-97); MONOCYTES % (AUTO) 12.7 % (3-13); PLATELET COUNT 175 10^3/uL (150-450); RED BLOOD COUNT 4.48 10^6/uL (4.35-5.55); RED CELL DISTRIBUTION WIDTH 13.4 % (11.5-14.0); SEGMENTED NEUTROPHILS % (AUTO) 47.4 % (42-78); TOTAL CELLS COUNTED % (AUTO) 100 %; WHITE BLOOD COUNT 6.4 10^3/uL (4.0-10.5)
[2020-04-20 15:39] LABS: ALBUMIN 4.7 g/dL (3.5-5.0); ALKALINE PHOSPHATASE 51 U/L (38-126); ANION GAP 9 (5-19); ASPARTATE AMINO TRANSFERASE 25 U/L (17-59); BILIRUBIN,TOTAL 0.6 mg/dL (0.2-1.3); BLOOD UREA NITROGEN 21 mg/dL (7-20); CALCIUM 9.9 mg/dL (8.4-10.2); CARBON DIOXIDE 24 mmol/L (22-30); CHLORIDE 106 mmol/L (98-107); GLUCOSE 101 mg/dL (75-110); POTASSIUM 4.4 mmol/L (3.6-5.0); TOTAL PROTEIN 7.7 g/dL (6.3-8.2)
== END ==
LOC: OD 14:35
PROVIDERS: ATTEND Specialist/Technologist Athletic Trainer
DX: Z11.2 Encounter for screening for other bacterial diseases (principal); I10 Essential (primary) hypertension
CPT/HCPCS: 36415; 80053; 85025; 87070

== ENCOUNTER 2020-05-31 09:45 | Emergency (ER) | payer MEDICARE, OTHER ==
[2020-05-31] MEDS ORDERED: ASPIRIN 325 MG TABLET PO ONE (10:40)
[2020-05-31 10:45] LABS: ABSOLUTE BASOPHILS # (AUTO) 0.1 10^3/uL (0.0-0.2); ABSOLUTE EOSINOPHILS # (AUTO) 0.4 10^3/uL (0.0-0.6); ABSOLUTE MONOCYTES (AUTO) 0.7 10^3/uL (0.1-1.4); ABSOLUTE NEUT (AUTO) 4.3 10^3/uL (1.7-8.2); EOSINOPHILS % (AUTO) 5.4 % (0-6); HEMATOCRIT 40.7 % (37.9-51.0); HEMOGLOBIN 14.2 g/dL (13.5-17.0); LYMPHOCYTES % (AUTO) 27.1 % (13-45); MEAN CORPUSCULAR HGB CONC 34.9 g/dL (32.0-36.0); MEAN CORPUSCULAR VOLUME 89 fl (80-97); PLATELET COUNT 191 10^3/uL (150-450); RED BLOOD COUNT 4.58 10^6/uL (4.35-5.55); SEGMENTED NEUTROPHILS % (AUTO) 57.5 % (42-78); TOTAL CELLS COUNTED % (AUTO) 100 %; WHITE BLOOD COUNT 7.5 10^3/uL (4.0-10.5)
[2020-05-31 11:08] LABS: ALBUMIN 4.4 g/dL (3.5-5.0); ALKALINE PHOSPHATASE 69 U/L (38-126); ANION GAP 13 (5-19); ASPARTATE AMINO TRANSFERASE 25 U/L (17-59); BILIRUBIN,DIRECT 0.2 mg/dL (0.0-0.4); BILIRUBIN,TOTAL 0.8 mg/dL (0.2-1.3); BLOOD UREA NITROGEN 17 mg/dL (7-20); CALCIUM 9.9 mg/dL (8.4-10.2); CARBON DIOXIDE 21 mmol/L (22-30); CHLORIDE 106 mmol/L (98-107); CREATINE KINASE 45 U/L (55-170); GLUCOSE 187 mg/dL (75-110); POTASSIUM 4.2 mmol/L (3.6-5.0); TOTAL PROTEIN 6.8 g/dL (6.3-8.2)
[2020-05-31 11:26] LABS: CREATINE KINASE MB 1.48 ng/mL (<4.55)
[2020-05-31 11:28] LABS: TROPONIN I < 0.012 ng/mL
--- NOTE | 2020-05-31 11:54 | RADIOLOGY REPORT (SQ) ---
EXAM DESCRIPTION: CHEST SINGLE VIEW IMAGES COMPLETED DATE/TIME: 05/31/2020 11:39 am REASON FOR STUDY: chest pain COMPARISON: 07/28/2018 EXAM PARAMETERS: NUMBER OF VIEWS: One view. TECHNIQUE: Single frontal radiographic view of the chest acquired. RADIATION DOSE: NA LIMITATIONS: None. FINDINGS: LUNGS AND PLEURA: No opacities, masses or pneumothorax. No pleural effusion. MEDIASTINUM AND HILAR STRUCTURES: No masses. Contour normal. HEART AND VASCULAR STRUCTURES: Heart normal in size. Normal vasculature. BONES: No acute findings. HARDWARE: None in the chest. OTHER: No other significant finding. IMPRESSION: NO ACUTE RADIOGRAPHIC FINDING IN THE CHEST. TECHNICAL DOCUMENTATION: JOB ID: [id number] [email or web address] All Rights Reserved Reading location - IP/workstation name: [email or web address]
--- NOTE | 2020-05-31 12:25 | EKG REPORT ---
SEVERITY:- BORDERLINE ECG - SINUS BRADYCARDIA BORDERLINE T ABNORMALITIES, INFERIOR LEADS : Confirmed by: Gabriel Chew MD 31-May-2020 12:24:07
--- NOTE | 2020-05-31 14:09 | ER Document Report ---
ED Cardiac - General Chief Complaint: Chest Pain Stated Complaint: CHEST PAIN/PRESSURE Time Seen by Provider: 05/31/20 10:17 Primary Care Provider: CHRIS ARANDA MD [NO LOCAL MD] - Follow up tomorrow Mode of Arrival: Ambulatory Information source: Patient TRAVEL OUTSIDE OF THE [place] IN LAST 30 DAYS: No - HPI Notes: Patient presents with chest pain. He states this started approximately 3 AM this morning. He states the pain was constant until he took [address] He states on the way here it started to slowly go away and by the time I arrived in the room he states the pain is completely gone. He had some shortness of breath with it. No nausea no vomiting and no diaphoresis. He states approxi-1 month ago he had a myocardial infarction and received a stent. This was done at [facility]. Patient states he also was told he had blockage that they are unable to place a stent in and another artery. He denies any recent trauma or fevers. No cough or congestion. His pain this morning was moderate in intensity. It did not radiate. It was a pressure like sensation. - Related Data Allergies/Adverse Reactions: No Known Allergies Allergy (Verified 05/31/20 10:37) Past Medical History - General Information source: Patient - Social History Smoking Status: Never Smoker Frequency of alcohol use: None Drug Abuse: None Family History: Hypertension - Past Medical History Cardiac Medical History: Reports: Hx Heart Attack, Hx Hypercholesterolemia, Hx Hypertension Pulmonary Medical History: Denies: Hx Asthma Neurological Medical History: Reports: Hx Cerebrovascular Accident - 06/2018 RIGHT SIDED WEAKNESS. Denies: Hx Seizures Renal/ Medical History: Denies: Hx Peritoneal Dialysis GI Medical History: Reports: Hx Hiatal Hernia - UMBILICAL HERNIA. Denies: Hx Hepatitis, Hx Ulcer Musculoskeletal Medical History: Reports Hx Arthritis Infectious Medical History: Denies: Hx Hepatitis Past Surgical History: Reports: Hx Cardiac Surgery, Hx Orthopedic Surgery - right hip replacement. Denies: Hx Open Heart Surgery, Hx Pacemaker - Immunizations Hx Diphtheria, Pertussis, Tetanus Vaccination: No Hx Pneumococcal Vaccination: 06/02/18 Review of Systems - Review of Systems Constitutional: denies: Chills, Fever Cardiovascular: Chest pain. denies: Palpitations Respiratory: Short of breath. denies: Cough -: Yes All other systems reviewed and negative Physical Exam - Vital signs Vitals: Temp Pulse Resp BP Pulse Ox 97.3 F 48 L 18 132/52 H 99 05/31/20 09:56 05/31/20 09:56 05/31/20 09:56 05/31/20 09:56 05/31/20 09:56 Interpretation: Bradycardic - General General appearance: Appears well, Alert - HEENT Head: Normocephalic, Atraumatic Eyes: Normal Pupils: PERRL - Respiratory Respiratory status: No respiratory distress Chest status: Nontender Breath sounds: Normal Chest palpation: Normal - Cardiovascular Rhythm: Bradycardia Heart sounds: Normal auscultation Murmur: No - Abdominal Inspection: Normal Distension: No distension Bowel sounds: Normal Tenderness: Nontender Organomegaly: No organomegaly - Back Back: Normal, Nontender - Extremities General upper extremity: Normal inspection, Nontender, Normal color, Normal ROM, Normal temperature General lower extremity: Normal inspection, Nontender, Normal color, Normal ROM, Normal temperature, Normal weight bearing. No: Yandel's sign - Neurological Neuro grossly intact: Yes Cognition: Normal Orientation: AAOx4 [place] Coma Scale Eye Opening: Spontaneous [place] Coma Scale Verbal: Oriented [place] Coma Scale Motor: Obeys Commands [place] Coma Scale Total: 15 Speech: Normal Motor strength normal: LUE, RUE, LLE, RLE Sensory: Normal - Psychological Associated symptoms: Normal affect, Normal mood - Skin Skin Temperature: Warm Skin Moisture: Dry Skin Color: Normal Course - Re-evaluation Re-evalutation: 05/31/20 14:07 Patient presents with chest pain. There is no ischemic EKG changes. Troponin is negative x2. I did call and discussed the case with his cardiology group at [facility]. They states that the patient is okay for discharge and they will arrange for him to be seen in the office. Patient is okay with this arrangement. In addition his heart rate has been in the high 30s and low 40s the whole time he has been here. He seems relatively asymptomatic with this. His blood pressure has been good. However I am going to suggest to him that he decrease the amount of Toprol he is currently taking from 100 mg per dose to 50 mg per dose. - Vital Signs Vital signs: Temp Pulse Resp BP Pulse Ox 97.3 F 48 L 12 113/59 L 98 05/31/20 09:56 05/31/20 09:56 05/31/20 13:01 05/31/20 13:01 05/31/20 13:01 - Laboratory Result Diagrams: 05/31/20 10:20 05/31/20 10:20 Laboratory results interpreted by me: 05/31/20 10:20 Carbon Dioxide 21 L Glucose 187 H Creatine Kinase 45 L - Diagnostic Test Radiology reviewed: Image reviewed, Reports reviewed - EKG Interpretation by Me EKG shows normal: Sinus rhythm Rate: Bradycardia - 49 Rhythm: NSR [place]/QRS: No: Right axis deviation, Left axis deviation Discharge - Discharge Clinical Impression: Angina at rest Condition: Stable Disposition: HOME, SELF-CARE Instructions: Angina Episode ([facility]) Additional Instructions: Please call Dr. Aranda office as soon as possible to arrange follow up. They are aware of your visit and are arranging for follow up with you. Please take only half of the toprol pill each night Referrals: CHRIS ARANDA MD [NO LOCAL MD] - Follow up tomorrow
[2020-05-31 15:12] VITALS: BP 137/60
== END 2020-05-31 15:13 | disposition home or self-care (01) ==
LOC: ER 09:45
DX: I20.8 Other forms of angina pectoris (principal); R07.9 Chest pain, unspecified; R06.02 Shortness of breath; R00.1 Bradycardia, unspecified; E78.00 Pure hypercholesterolemia, unspecified; I10 Essential (primary) hypertension; I25.2 Old myocardial infarction
CPT/HCPCS: 93005; 99285; 36415; 82553; 82550; 85025; 80053; 84484; 71045; 93010; A9270